=== PATIENT | female | born 1965 | race Caucasian/White ===

== ENCOUNTER 2019-12-05 11:47 | Emergency (ER) | payer OTHER, SELFPAY ==
[2019-12-05 11:58] VITALS: BP 151/95; PULSE 87; RESP 16; TEMP 37.2; O2SAT 97
--- NOTE | 2019-12-05 11:59 | ECG_ITS ---
Test Reason : CHEST PAIN Blood Pressure : / mmHG Vent. Rate : 088 BPM Atrial Rate : 088 BPM P-R Int : 164 ms QRS Dur : 086 ms QT Int : 364 ms P-R-T Axes : 046 008 033 degrees QTc Int : 440 ms Normal sinus rhythm Normal ECG No previous ECGs available Referred By: Nela Canales Electronically Signed By:CHARLENE CORREA MD
--- NOTE | 2019-12-05 12:00 | ED_ITS ---
HPI - Chest Pain General Chief Complaint: Chest Pain Stated Complaint: chest pain Time Seen by Provider: 12/05/19 12:00 Source: patient Mode of arrival: ambulatory Limitations: no limitations History of Present Illness HPI narrative: after episode went for walk around neighborhood and felt fine complaint: chest pain Onset (ago): day(s) (last night after drinking too much coffee and lasted 30 minutes) Timing of current episode: now resolved Onset: during rest Pain location: left chest Pain radiation: left arm Severity: moderate Quality: aching Relieving factors: nothing Exacerbating factors: nothing Associated symptoms: nausea and dyspnea Treatment prior to arrival: none Related Data Allergies Allergy/AdvReac Type Severity Reaction Status Date / Time No Known Allergies Allergy Verified 12/05/19 12:01 Review of Systems Review of Systems: Constitutional : No Weight loss, No Fever, No Chills ENT/Mouth : No sore throat, No Rhinorrhea Eyes: No Eye Pain, No Swelling Cardiovascular : pos Chest Pain, pos SOB, no Dyspnea on Exertion, No Orthopnea, No Edema, No Palpitations Respiratory : No Cough, No Sputum Gastrointestinal : pos Nausea, No Vomiting, No Diarrhea, No abdominal Pain, No Hematochezia, No Melena Genitourinary : No Dysuria, No Urinary Frequency Musculoskeletal : No joint pain, No Myalgias, No Joint Swelling Skin : No Skin Lesions, No rash Neuro : No Weakness, No Numbness, No Dizziness, No Headache All other systems reviewed and are negative [facility] Past Medical History Medical History No known health problems Surgical History H/O: hysterectomy Social History Social History Smoked in Last 30 Days: No Use of substances other than those prescribed or required for medical reasons: No Advance Directives: No Advance Directives Information Provided: No Physical Exam Vital Signs: Vital Signs: Vital Signs Temp Pulse Resp BP Pulse Ox 12/05/19 11:58 99.0 F 87 16 151/95 H 97 Body Mass Index 30.0 Appearance: Alert. Oriented X3. No acute distress. Eyes: Pupils equal, round and reactive to light. ENT: Pharynx normal. Neck: Normal inspection. Neck supple. CVS: Normal heart rate and rhythm. Pulses normal. Respiratory: No respiratory distress. Breath sounds normal. Abdomen: Soft and nontender. Skin: Skin warm and dry. Normal skin color. Normal skin turgor. Extremities: No lower extremity edema. No calf ttp ttp along L biceps muscle and trapezius as well as pectoralis Neuro: Oriented X 3. No motor deficit. No sensory deficit. Course Course Course Narrative: no acute findings, EKG negative, troponin negative, stable for DC MDM - Chest Pain MDM Narrative Medical decision making narrative: 54 yo female with resolved chest pain last night unsure if it was acid reflux after drinking too much coffee, will need labs, EKG, no hypoxia, not pleuritic, no signs of DVT doubt PE, distal pulses symmetric doubt dissection Lab Data Result diagrams: 12/05/19 12:10 12/05/19 12:10 Labs: Lab Results 12/05/19 12/05/19 12/05/19 Range/Units 12:10 12:10 12:10 Hold Blue Top SEE NOTE Sodium 138 (135-145) mmol/L Potassium 4.3 (3.3-5.1) mmol/l Chloride 101 (96-108) mmol/L Carbon Dioxide 26 (22-29) mmol/L Anion Gap 15 (12-20) BUN 15 (9-16) mg/dL Creatinine 0.71 (0.5-1.4) mg/dL Estim Creat Clear Calc 92.3 Estimated GFR > 60 Random Glucose 119 H (60-115) mg/dL Calcium 9.1 (8.4-10.2) mg/dL Magnesium 2.2 (1.6-2.6) mg/dL Total Bilirubin 0.6 (0.0-1.0) mg/dL Direct Bilirubin 0.2 (0.0-0.5) mg/dL AST 30 (5-31) U/L ALT 43 H (0-31) U/L Alkaline Phosphatase 103 (39-117) U/L Troponin I High Sens < 3.5 (<3.5-17.0) ng/L Total Protein 7.4 (6.5-8.0) g/dL Albumin 4.1 (3.5-5.0) g/dL Lipase 43 (8-78) U/L ECG Data ECG #1: Attestation: I personally reviewed and interpreted this ECG as follows: ECG interpretation date: 12/05/19 ECG interpretation time: 12:10 Interpretation: Rate: 88 Rhythm: NSR [place]: normal Normal P waves. Normal KELVIN. Normal QRS complex. ST T wave : normal qTC: normal prior studies: no acute ischemia The study has been interpreted contemporaneously by me. .
--- NOTE | 2019-12-05 12:02 | XR_ITS ---
EXAMINATION: XR CHEST CLINICAL INFORMATION: Chest pain COMPARISON: None TECHNIQUE: Portable upright AP view of the chest was obtained. FINDINGS: Lungs are clear. There is no pneumothorax, pleural reaction, airspace consolidation, or effusion. The costophrenic sulci are well-defined. The heart is normal in size. The vascularity is normal. The hilar and mediastinal contours are normal. No visible acute bony abnormality. IMPRESSION: Normal study.
[2019-12-05 12:38] LABS: Alanine Aminotransferase 43 U/L (0-31); Albumin Level 4.1 g/dL (3.5-5.0); Alkaline Phosphatase 103 U/L (39-117); Anion Gap 15 (12-20); Aspartate Amino Transferase 30 U/L (5-31); Bilirubin Direct 0.2 mg/dL (0.0-0.5); Bilirubin Total 0.6 mg/dL (0.0-1.0); Blood Urea Nitrogen 15 mg/dL (9-16); Calcium 9.1 mg/dL (8.4-10.2); Carbon Dioxide 26 mmol/L (22-29); Chloride 101 mmol/L (96-108); Creatinine Clr Calc Pharmacy 92.3; Estimated Glomerular Filt Rate > 60; Glucose Random 119 mg/dL (60-115); Lipase 43 U/L (8-78); Magnesium 2.2 mg/dL (1.6-2.6); Potassium 4.3 mmol/l (3.3-5.1); Sodium 138 mmol/L (135-145); Total Protein 7.4 g/dL (6.5-8.0)
[2019-12-05 12:58] LABS: Troponin-I High Sensitivity < 3.5 ng/L (<3.5-17.0)
== END 2019-12-05 13:19 | disposition home or self-care (01) ==
PROVIDERS: Emergency Provider Emergency Medicine; PCP Internal Medicine
DX: R07.9 Chest pain, unspecified (principal)
CPT/HCPCS: 36415; 71045; 80048; 80076; 83690; 83735; 84484; 93005; 99283; 99284

== ENCOUNTER 2021-09-28 08:28 | Emergency (ER) | payer OTHER, SELFPAY ==
--- NOTE | ~2021-09-28 | CT_ITS ---
EXAMINATION: CT HEAD WITHOUT CONTRAST CLINICAL INFORMATION: Left-sided weakness and numbness. Headache. COMPARISON: None TECHNIQUE: Contiguous axial imaging was performed from the skull base to vertex without intravenous administration of contrast. This CT examination was performed using dose optimization techniques as appropriate, variously including the following: *Automated exposure control *Adjustment of mA and/or kV according to patient size (this includes techniques or standardized protocols for targeted exams where dose is matched to indication/reason for exam; i.e. extremities or head) *Use of iterative reconstruction technique DLP: 673 mGy-cm FINDINGS: There is no evidence of acute intracranial hemorrhage or territorial infarction. No abnormal mass effect or midline shift is seen. Ge to white matter differentiation is well preserved. No extra-axial fluid collections are identified. The ventricles are normal in size. There is no abnormal attenuation within the brain parenchyma. The osseous structures and soft tissues are normal. The mastoid air cells and visualized portions of the paranasal sinuses are well aerated. CT/CT head/brain wo con IMPRESSION: Unremarkable exam.
--- NOTE | ~2021-09-28 | CT_ITS ---
EXAMINATION: CT ABDOMEN AND PELVIS WITHOUT CONTRAST CLINICAL INFORMATION: Abdominal pain and nausea COMPARISON: None TECHNIQUE: Multidetector volumetric imaging was performed from the superior aspect of the liver through the pubic symphysis. Sagittal and coronal reformatted images were obtained on the technologist's workstation. This CT examination was performed using dose optimization techniques as appropriate, variously including the following: *Automated exposure control *Adjustment of mA and/or kV according to patient size (this includes techniques or standardized protocols for targeted exams where dose is matched to indication/reason for exam; i.e. extremities or head) *Use of iterative reconstruction technique DLP: 733 mGy-cm FINDINGS: LUNG BASES: The visualized lung bases are unremarkable. LIVER, GALLBLADDER, AND BILIARY TREE: The liver is normal in size, shape, and attenuation. No focal hepatic lesion or biliary ductal dilatation is present. The gallbladder is unremarkable with no evidence of radiopaque gallstones, gallbladder wall thickening, or obvious pericholecystic inflammatory changes. PANCREAS: Unremarkable. SPLEEN: Unremarkable. ADRENAL GLANDS: Unremarkable. KIDNEYS AND URETERS: The kidneys are normal in size, shape, and attenuation. No hydronephrosis, hydroureter, or calculi seen. No perinephric stranding. BLADDER: Unremarkable. GASTROINTESTINAL TRACT: There is mild diverticulosis of the colon. No evidence of diverticulitis. The small and large bowel are otherwise unremarkable. The appendix is unremarkable. ABDOMINAL WALL: No significant hernia is appreciated. LYMPH NODES: Normal. VASCULAR: Unremarkable. PELVIC VISCERA: Uterus appears to have been removed. No pelvic mass. OSSEOUS STRUCTURES: Unremarkable. CT/CT abdomen pelvis wo con IMPRESSION: No acute findings. Mild diverticulosis of the colon. Fleischner guidelines were followed.
[2021-09-28 08:36] VITALS: BP 166/92; PULSE 84; RESP 18; TEMP 36.1; O2SAT 97; BMI 32.5
--- NOTE | 2021-09-28 09:14 | ED.GENADULT ---
HPI - General Adult General Chief complaint: General Medical Stated complaint: Vomiting/Blurry vision/Headache Time Seen by Provider: 09/28/21 08:59 Source: patient Mode of arrival: ambulatory Limitations: no limitations History of Present Illness HPI narrative: 55 yo female with history of depression/anxiety, untreated HTN who presents to the ER for evaluation of not feeling well for the last 1 month. She reports for the last month she has had intermittent migraine headaches, blurred vision and left sided heaviness. She reports the left side of her body sometimes feels tingling, kind of numb and heavy. It comes and goes. She attributed her symptoms to being very stressed at home. 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 She also recently tapered off of her Sertraline, last took it 3 weeks ago. She reports over the last 2 days she has burning in my whole gut. She states the burning pain radiates up into her chest. She is nauseous but not vomiting. She reports having small bowel movements but no complete bowel movement in the last few days. She has tried taking MiraLax. MD complaint: Abdominal pain to come, left-sided heaviness Onset (ago): week(s) Location: head, face, abdomen, upper extremity and lower extremity Radiation: non-radiation Severity: moderate Pain Consistency: intermittent Relieving factors: none Exacerbating factors: none Associated symptoms: headaches, malaise, nausea/vomiting and weakness Treatments prior to arrival: none Related Data Previous Rx's Medication Instructions Recorded lisinopril 10 mg tablet 10 mg PO DAILY #30 tabs 09/28/21 ondansetron 4 mg disintegrating 4 mg PO Q8H PRN nausea and 09/28/21 tablet vomiting #10 tabs pantoprazole 40 mg tablet,delayed 40 mg PO DAILY #30 tabs 09/28/21 release (Protonix) Allergies Allergy/AdvReac Type Severity Reaction Status Date / Time No Known Allergies Allergy Verified 12/05/19 12:01 Review of Systems Review of Systems: Constitutional: No Fever, No Chills ENT/Mouth: No sore throat, No Rhinorrhea, No Swallowing Difficulty Eyes: No Eye Pain, No Swelling, No Redness, +blurred vision Cardiovascular: No Chest Pain, No SOB, No Orthopnea, No Edema Respiratory: No Cough, No Sputum, No Wheezing, No dyspnea Gastrointestinal: + Nausea, No Vomiting, No Diarrhea, + abdominal Pain, No Hematochezia, No Melena Genitourinary: No Dysuria, No Urinary Frequency, No Hematuria Musculoskeletal: No joint pain, No Myalgias Skin: No Skin Lesions, No rash Neuro: + Weakness, + Numbness, No Dizziness, + Headache Psych: + Anxiety/Panic, + Depression Heme/Lymph: No Bruising, No Lymphadenopathy Endocrine: No Polyuria, No Polydipsia PMFSH Past Medical History Medical History No known health problems Surgical History H/O: hysterectomy Social History Social History Smoked in Last 30 Days: No Use of substances other than those prescribed or required for medical reasons: No Advance Directives: No Advance Directives Information Provided: Yes Physical Exam ED Vital Signs: Vital Signs - 24 hr 09/28/21 08:36 09/28/21 10:26 09/28/21 11:37 Temperature 97.0 F 98.1 F Pulse Rate 84 88 80 Respiratory Rate 18 20 Blood Pressure 166/92 H 196/106 H 168/98 H Pulse Oximetry 97 95 Oxygen Delivery Method Room Air Room Air BMI result Body Mass Index 32.5 Appearance: Alert. Oriented X3. No acute distress. Eyes: Pupils equal, round and reactive to light. EOMI, No nystagmus ENT: Pharynx normal. Neck: Normal inspection. Neck supple. CVS: Normal heart rate and rhythm. Pulses normal. Respiratory: No respiratory distress. Breath sounds normal. Abdomen: Obese, Soft with moderate tenderness to palpation of the periumbulical and epigastric areas, no rebound or guarding, normal +BS x4 Skin: Skin warm and dry. Normal skin color. Normal skin turgor. No rashes. Extremities: No lower extremity edema. Neuro: Oriented X 3. No motor deficit. No sensory deficit. CN II-XII intact. no visual field deficits. Equal and symmetrical strength throughout. Steady gait. Normal speech and cognition. Nonfocal NIH Stroke Scale Internal: Initial- Upon Arrival Level of Consciousness: Alert Level of Consciousness Questions: Answers both questions correctly Level of Consciousness Commands: Performs both tasks correctly Best Gaze: Normal Visual: No visual loss Facial Palsy: Normal Motor Arm (Right): No drift Motor Arm (Left): No drift Motor Leg (Right): No drift Motor Leg (Left): No drift Limb Ataxia: Absent Sensory: Normal Best Language: No aphasia Dysarthia: Normal Extinction and Inattention: No abnormality Score: 0 Course Course Course Narrative: 55-year-old female with history of anxiety, depression, untreated hypertension who presents to the ER for evaluation of 1 month of feeling unwell. She reports 1 month of intermittent headaches and left-sided heaviness. Two days ago developed burning abdominal pain that radiates up into her chest. On arrival to the ER she is hypertensive 160 systolic. She has a migraine headache. Her neuro exam is completely nonfocal with an NIH of 0. Will plan to check CT head, basic lab workup, will also scan her belly given her abdominal pain and tenderness. Will give a GI cocktail in Tylenol for now. Will reassess. Reevaluation(s) Reevaluation #1: His blood pressure noted to be significantly elevated 196/106. She is complaining of a headache. The CT scan of her head is normal. Her left arm is mildly heavy. This most likely due to her poorly controlled blood pressure. Will give her dose of IV labetalol and reassess. Her ongoing symptoms of the last month can be explained by poorly controlled blood pressure. She has no signs of end-organ damage at this time. Her renal function is normal. Reevaluation #2: Patient is feeling better. Her blood pressure improved to the 160 systolic. Will plan to initiate her on lisinopril 10 mg per day. She has contacted her PCP and plans to see her this week for re-evaluation and further monitoring. Medical Decision Making Lab Data Result diagrams: 09/28/21 09:18 09/28/21 09:18 Labs: Lab Results 09/28/21 09/28/21 09/28/21 Range/Units 09:17 09:17 09:18 WBC 9.8 (4.8-10.8) X10*3/uL RBC 5.18 (4.20-5.50) X10*6/uL Hgb 14.5 (12.0-16.0) g/dl Hct 44.2 (37.0-47.0) % MCV 85.3 (80.0-98.0) fL MCH 28.0 (27.0-33.0) pg MCHC 32.8 (31.0-35.0) g/dl RDW 13.2 (11.0-16.0) % Plt Count 304 (160-400) X10*3/uL MPV 10.1 (9.4-12.3) fL Immature Gran % (Auto) 0.2 (0.0-0.4) % Neut % (Auto) 81.9 H (45-73) % Lymph % (Auto) 9.3 L (20-40) % [place] % (Auto) 5.8 (2-11) % Eos % (Auto) 2.6 (0-4) % Baso % (Auto) 0.2 (0-2) % Lymph # (Auto) 0.9 L (1.2-4.9) X10*3/uL [place] # (Auto) 0.6 (0.1-1.2) X10*3/uL Eos # (Auto) 0.3 (0.0-0.4) X10*3/uL Baso # (Auto) 0.0 (0.0-0.2) X10*3/uL Abs Immat Gran (auto) 0.02 (0.00-0.03) X10*3/uL Absolute Neuts (auto) 8.0 (2.0-8.3) x10*3/uL Absolute Nucleated RBC 0.000 (0.0-0.012) X10*3/uL Nucleated RBC % (auto) 0.0 (0.0-0.2) /100WBC Sodium (135-145) mmol/L Potassium (3.3-5.1) mmol/L Chloride (96-108) mmol/L Carbon Dioxide (22-29) mmol/L Anion Gap (12-20) BUN (9-16) mg/dL Creatinine (0.5-1.4) mg/dL Estim Creat Clear Calc Estimated GFR Random Glucose (60-115) mg/dL Calcium (8.4-10.2) mg/dL Magnesium (1.6-2.6) mg/dL Total Bilirubin (0.0-1.0) mg/dL Direct Bilirubin (0.0-0.5) mg/dL AST (5-31) U/L ALT (0-31) U/L Alkaline Phosphatase (39-117) U/L Total Protein (6.5-8.0) g/dL Albumin (3.5-5.0) g/dL Lipase 19 (8-78) U/L COVID-19 (ANGELA) Negative (Negative) COVID-19 Clin Com See Note 09/28/21 Range/Units 09:18 WBC (4.8-10.8) X10*3/uL RBC (4.20-5.50) X10*6/uL Hgb (12.0-16.0) g/dl Hct (37.0-47.0) % MCV (80.0-98.0) fL MCH (27.0-33.0) pg MCHC (31.0-35.0) g/dl RDW (11.0-16.0) % Plt Count (160-400) X10*3/uL MPV (9.4-12.3) fL Immature Gran % (Auto) (0.0-0.4) % Neut % (Auto) (45-73) % Lymph % (Auto) (20-40) % [place] % (Auto) (2-11) % Eos % (Auto) (0-4) % Baso % (Auto) (0-2) % Lymph # (Auto) (1.2-4.9) X10*3/uL [place] # (Auto) (0.1-1.2) X10*3/uL Eos # (Auto) (0.0-0.4) X10*3/uL Baso # (Auto) (0.0-0.2) X10*3/uL Abs Immat Gran (auto) (0.00-0.03) X10*3/uL Absolute Neuts (auto) (2.0-8.3) x10*3/uL Absolute Nucleated RBC (0.0-0.012) X10*3/uL Nucleated RBC % (auto) (0.0-0.2) /100WBC Sodium 142 (135-145) mmol/L Potassium 3.9 (3.3-5.1) mmol/L Chloride 104 (96-108) mmol/L Carbon Dioxide 27 (22-29) mmol/L Anion Gap 15 (12-20) BUN 8 L (9-16) mg/dL Creatinine 0.72 (0.5-1.4) mg/dL Estim Creat Clear Calc 93.8 Estimated GFR > 60 Random Glucose 109 (60-115) mg/dL Calcium 9.0 (8.4-10.2) mg/dL Magnesium 2.0 (1.6-2.6) mg/dL Total Bilirubin 1.2 H (0.0-1.0) mg/dL Direct Bilirubin 0.4 (0.0-0.5) mg/dL AST 17 D (5-31) U/L ALT 25 (0-31) U/L Alkaline Phosphatase 102 (39-117) U/L Total Protein 7.0 (6.5-8.0) g/dL Albumin 4.1 (3.5-5.0) g/dL Lipase (8-78) U/L COVID-19 (ANGELA) (Negative) COVID-19 Clin Com Critical Care Time Critical Care Time Critical Care Time: Yes Total Critical Care Time: 35 Attestation: I have personally provided critical care time exclusive of time spent on separately billable procedures. Time includes review of lab data, radiology results, discussion with consultants, and monitoring for potential decompensation. Intervention performed as documented. Discharge Plan Discharge Clinical Impression: Hypertension Patient Disposition: Home, Self-Care Instructions: DASH Eating Plan (ED), Hypertension (ED) Additional Instructions: While in the ER today your blood pressure was found to be significantly elevated. IV medications were given to improve this. Start taking the prescribed blood pressure medication as directed. Follow-up with your doctor this week. Your lab workup and CT scans were otherwise unremarkable. Do your best to cut out salt from your diet. If you develop new or worsening symptoms call 911 or come back to the ER for further evaluation. Prescriptions: New lisinopril 10 mg tablet 10 mg PO DAILY Qty: 30 0RF ondansetron 4 mg tablet,disintegrating 4 mg PO Q8H PRN (Reason: nausea and vomiting) Qty: 10 0RF pantoprazole [Protonix] 40 mg tablet,delayed release (DR/EC) 40 mg PO DAILY Qty: 30 0RF Referrals: Joelle Rodriguez MD [Primary Care Provider] - Interventions: ED Discharge Assessment Last Done: 09/28/21 11:47 Discharge Date/Time: 09/28/21 11:47
[2021-09-28 09:23] LABS: Basophils Percent Auto 0.2 % (0-2); Eosinophils Absolute Auto 0.3 X10*3/uL (0.0-0.4); Eosinophils Percent Auto 2.6 % (0-4); Hematocrit 44.2 % (37.0-47.0); Hemoglobin 14.5 g/dl (12.0-16.0); Imm Gran Abs Auto 0.02 X10*3/uL (0.00-0.03); Imm Gran Pct Auto 0.2 % (0.0-0.4); Lymphocytes Absolute Auto 0.9 X10*3/uL (1.2-4.9); Lymphocytes Percent Auto 9.3 % (20-40); MANUAL DIFF FLAG NO; Mean Corpuscular HGB Conc 32.8 g/dl (31.0-35.0); Mean Corpuscular Volume 85.3 fL (80.0-98.0); Mean Platelet Volume 10.1 fL (9.4-12.3); Monocytes Absolute Auto 0.6 X10*3/uL (0.1-1.2); Monocytes Percent Auto 5.8 % (2-11); Neutrophils Percent Auto 81.9 % (45-73); Platelet Count 304 X10*3/uL (160-400); Red Blood Count 5.18 X10*6/uL (4.20-5.50); Red Cell Distribution Width 13.2 % (11.0-16.0); White Blood Count 9.8 X10*3/uL (4.8-10.8)
[2021-09-28 09:49] LABS: COVID-19 Test Negative (Negative); IDNOW Serial# 16C4AD1C
[2021-09-28 09:53] LABS: Alanine Aminotransferase 25 U/L (0-31); Albumin Level 4.1 g/dL (3.5-5.0); Alkaline Phosphatase 102 U/L (39-117); Anion Gap 15 (12-20); Aspartate Amino Transferase 17 U/L (5-31); Bilirubin Direct 0.4 mg/dL (0.0-0.5); Bilirubin Total 1.2 mg/dL (0.0-1.0); Blood Urea Nitrogen 8 mg/dL (9-16); Carbon Dioxide 27 mmol/L (22-29); Chloride 104 mmol/L (96-108); Creatinine Clr Calc Pharmacy 93.8; Estimated Glomerular Filt Rate > 60; Glucose Random 109 mg/dL (60-115); Potassium 3.9 mmol/L (3.3-5.1); Sodium 142 mmol/L (135-145)
[2021-09-28 09:54] LABS: Lipase 19 U/L (8-78)
[2021-09-28] MEDS: Acetaminophen 325 MG TABLET 975 MG PO (10:23)
[2021-09-28] MEDS: Magnesium Hydrox/Alum Hydrox 30 ML ORAL.SUSP PO (10:24)
[2021-09-28] MEDS: PHENobarb/Hyoscy/Atropine/Scop 10 ML ELIXIR PO (10:24)
[2021-09-28] MEDS: Lidocaine HCl Viscous 2 % 15 ML SOLUTION MUCOUS MEM (10:24)
[2021-09-28 10:26] VITALS: BP 196/106; PULSE 88; RESP 20; TEMP 36.7; O2SAT 95
[2021-09-28 11:37] VITALS: BP 168/98; PULSE 80
== END 2021-09-28 11:47 | disposition home or self-care (01) ==
PROVIDERS: Physician Assistant; Emergency Provider Student in an Organized Health Care Education/Training Program; PCP Internal Medicine
DX: R51.9 Headache, unspecified (principal); R53.1 Weakness; I10 Essential (primary) hypertension; R10.2 Pelvic and perineal pain; Z20.822 Contact with and (suspected) exposure to COVID-19; Z79.899 Other long term (current) drug therapy
CPT/HCPCS: 36415; 70450; 74176; 80048; 80076; 83690; 83735; 85025; 87635; 96374; 99284

== ENCOUNTER 2021-12-11 11:37 | Emergency (ER) | payer OTHER, SELFPAY ==
--- NOTE | ~2021-12-11 | XR_ITS ---
EXAMINATION: XR CHEST CLINICAL INFORMATION: Chest pain COMPARISON: December 05, 2019 TECHNIQUE: 2 views of the chest were obtained. FINDINGS: No significant abnormality is noted involving the heart, lungs, mediastinum, bony thorax or soft tissues. XR/XR chest 2V IMPRESSION: No acute disease.
[2021-12-11 11:55] VITALS: BP 152/83; PULSE 85; RESP 18; TEMP 37.2; O2SAT 100; BMI 32.5
--- NOTE | 2021-12-11 11:55 | ECG_ITS ---
Test Reason : chest pain Blood Pressure : / mmHG Vent. Rate : 082 BPM Atrial Rate : 082 BPM P-R Int : 178 ms QRS Dur : 084 ms QT Int : 358 ms P-R-T Axes : 044 -02 040 degrees QTc Int : 418 ms Normal sinus rhythm Normal ECG When compared with ECG of 05-DEC-2019 11:55, No significant change was found Referred By: Generic ED Physician Electronically Signed By:CHARLENE CORREA MD
[2021-12-11 12:28] LABS: MANUAL DIFF FLAG NO
[2021-12-11 12:29] LABS: Basophils Percent Auto 0.2 % (0-2); Eosinophils Absolute Auto 0.1 X10*3/uL (0.0-0.4); Eosinophils Percent Auto 1.4 % (0-4); Hematocrit 43.9 % (37.0-47.0); Hemoglobin 14.3 g/dl (12.0-16.0); Imm Gran Abs Auto 0.02 X10*3/uL (0.00-0.03); Imm Gran Pct Auto 0.2 % (0.0-0.4); Lymphocytes Absolute Auto 1.8 X10*3/uL (1.2-4.9); Lymphocytes Percent Auto 21.5 % (20-40); Mean Corpuscular HGB Conc 32.6 g/dl (31.0-35.0); Mean Corpuscular Volume 85.9 fL (80.0-98.0); Monocytes Absolute Auto 0.7 X10*3/uL (0.1-1.2); Monocytes Percent Auto 8.2 % (2-11); Neutrophils Absolute Auto 5.7 x10*3/uL (2.0-8.3); Neutrophils Percent Auto 68.5 % (45-73); Platelet Count 333 X10*3/uL (160-400); Red Blood Count 5.11 X10*6/uL (4.20-5.50); Red Cell Distribution Width 13.2 % (11.0-16.0); White Blood Count 8.3 X10*3/uL (4.8-10.8)
[2021-12-11 12:43] LABS: COVID-19 Test Negative (Negative); IDNOW Serial# 16C4AD1C
[2021-12-11 12:50] LABS: Alanine Aminotransferase 35 U/L (0-31); Albumin Level 4.1 g/dL (3.5-5.0); Alkaline Phosphatase 114 U/L (39-117); Anion Gap 15 (12-20); Aspartate Amino Transferase 24 U/L (5-31); Bilirubin Direct 0.2 mg/dL (0.0-0.5); Bilirubin Total 0.5 mg/dL (0.0-1.0); Blood Urea Nitrogen 9 mg/dL (9-16); Calcium 8.7 mg/dL (8.4-10.2); Carbon Dioxide 25 mmol/L (22-29); Chloride 105 mmol/L (96-108); Creatinine Clr Calc Pharmacy 96.6; Estimated Glomerular Filt Rate > 60; Glucose Random 96 mg/dL (60-115); Lipase 20 U/L (8-78); Potassium 3.9 mmol/L (3.3-5.1); Sodium 141 mmol/L (135-145); Total Protein 7.2 g/dL (6.5-8.0)
[2021-12-11 12:56] LABS: Troponin-I High Sensitivity < 3.5 ng/L (<3.5-17.0)
--- NOTE | 2021-12-11 13:04 | ED_ITS ---
HPI - Chest Pain General Chief Complaint: Chest Pain Stated Complaint: L upper quad pain Time Seen by Provider: 12/11/21 12:13 Source: patient Mode of arrival: ambulatory Limitations: no limitations History of Present Illness HPI narrative: Patient is a 56 year old female with a past medical history of anxiety/depr ession and hypertension who presents to the ED today with complaints of left- sided chest pain for the last 1-2 months. She was seen here back in 09/2021 with similar symptoms and was treated for hypertension with lisinopril at the time. She continues to have the pain despite her previous workup. She describes the pain as a pressure that radiates into her neck, arm, and shoulder blade that has recently worsened. She denies any alleviating or aggravating factors. She denies any fevers, chills, headaches, dizziness, vision changes, exertional dyspnea, SOB, hemoptysis, palpitations, abdominal pain, N/V/D, back pain, calf pain/swelling, recent surgery, recent trauma, recent travel, hx of coagulation disorders, and OCP use. Related Data Previous Rx's Medication Instructions Recorded lisinopril 10 mg tablet 10 mg PO DAILY #30 tabs 09/28/21 ondansetron 4 mg disintegrating 4 mg PO Q8H PRN nausea and 09/28/21 tablet vomiting #10 tabs pantoprazole 40 mg tablet,delayed 40 mg PO DAILY #30 tabs 09/28/21 release (Protonix) Allergies Allergy/AdvReac Type Severity Reaction Status Date / Time No Known Allergies Allergy Verified 12/05/19 12:01 Review of Systems Review of Systems: Yes all other systems are reviewed and are negative Constitutional: Constitutional: Reports no additional constitutional complaints, Denies body ache(s), Denies chills, Denies fever(s), Denies headache(s) and Denies weakness Eyes: Eyes: Reports no additional eye complaints and Denies change in vision ENT: Reports system reviewed and no additional complaints, except as documented, Denies dizziness, Denies headache(s), Denies nasal congestion, Denies nasal discharge and Denies neck pain Cardiovascular: Cardiovascular: Reports no additional cardiovascular complaints, Reports chest pain, Denies leg edema and Denies dyspnea Respiratory: Respiratory: Reports no additional respiratory complaints, Denies cough and Denies dyspnea Gastrointestinal: Gastrointestinal: Reports no additional gastrointestinal complaints, Denies abdominal pain, Denies diarrhea, Denies nausea and Denies vomiting Genitourinary: Genitourinary: Reports no additional female genitourinary complaints and Denies urinary incontinence Musculoskeletal: Musculoskeletal: Reports no additional musculoskeletal complaints, Denies back pain, Denies arthralgias, Denies joint swelling, Denies neck pain, Denies numbness and Denies tingling Integumentary/Breasts: Skin/Breast: Reports system reviewed and no additional complaints, except as docu and Denies rash Neurologic: Reports system reviewed and no additional complaints, except as documented, Denies Abnormal speech present, Denies dizziness, Denies headache(s), Denies numbness, Denies tingling and Denies weakness PMFSH Past Medical History Attestation statement: The following information was validated with the patient. Source: old records reviewed, obtained from family and nursing notes reviewed Medical History No known health problems Surgical History H/O: hysterectomy Social History Social History Advance Directives: No Physical Exam Vital Signs: Vital Signs: Last Vital Signs Temp 98.9 F 12/11/21 11:55 Pulse 85 12/11/21 11:55 Resp 18 12/11/21 11:55 BP 152/83 H 12/11/21 11:55 Pulse Ox 100 12/11/21 11:55 O2 Del Method 12/11/21 11:55 BMI result Body Mass Index 32.5 Const: General: cooperative, healthy appearing, comfortable and no acute distress Orientation/consciousness: patient oriented x3 Limitations: no limitations HEENT: Head: Yes normal to inspection Ears: hearing grossly normal bilaterally General nose exam: Normal external nose present Face and sinus: Yes normal facial exam Mouth: Normal oral and palatal mucosa present Throat: Yes posterior oropharynx normal Eyes: General: appearance normal, both eyes and all related structures Pupils: Equal, round and reactive pupils present Neck: Neck: Yes normal visual inspection Chest: Chest palpation & inspection: normal inspection of the chest Resp: Effort & Inspection: normal respiratory effort Auscultation: clear to auscultation bilaterally Cardio: Rate: regular rate Rhythm: regular rhythm Peripheral pulses: Peripheral pulses 2+ throughout GI: Inspection: Yes normal to inspection Palpation (GI): Soft to palpation and nontender Auscultation: normal bowel sounds Back/Spine/Pelvis: Thoracic/Lumbar Spine: thoracic and lumbar spine normal to inspection Skin: General skin exam: no rashes or lesions noted Neuro: General: patient oriented x3, no focal motor deficits and normal sensation to monofilament Cranial nerves: Yes Equal, round and reactive pupils present Cognition (Neuro): normal cognition Speech: No Abnormal speech present Gait exam (Neuro): Normal gait present Motor exam (neuro): 5/5 motor strength present throughout Extrem: General: Yes normal to inspection and Yes no calf tenderness Course Reevaluation(s) Reevaluation #1: 13:15 -Initial CBC, BMP, Mg, lipase within normal limits. Initial troponin negative <3.5. Given chronicity of symptoms, low heart score risk, and negative initial troponin, will defer 2nd troponin at this time. -EKG shows NSR at 82bpm, QTc 418 ms, UT normal. No significant changes compared it to last EKG on 12/11/2021. -CXR currently pending. Reevaluation #2: 14:30 -CXR negative for any acute disease. -Given negative labs, EKG, chest x-ray. Discussed results with patient and that she is low risk for ACS, dissection, PE at this time. Plan to discharge home, advised follow up with PCP in 2-3 days for further work-up. Discussed return to the ED if red flag symptoms occur or new/worsening symptoms develop. MDM - Chest Pain MDM Narrative Medical decision making narrative: Patient is a 56 year old female with a past medical history of anxiety/depression and hypertension who presents to the ED today with complaints of left-sided chest pain for the last 1-2 months. Patient mildly hypertensive at 152/83, otherwise VSS. Patient nontoxic appearing comfortable in bed. Chest pain is reproducible with palpation over the left clavicle area. Otherwise physical exam is unremarkable. Low concern for ACS given heart score of 3, chronicity of symptoms, recent negative workup, reproducible pain. Patient with perc score of 1, low concern for PE given recent negative workup, negative [place], patient without tachycardia or tachypnea, neg calf pain/swelling. Will order CBC, BMP, troponin, EKG, CXR to rule out cardiac etiology. Medical Records Data Attestation: I reviewed the patient's medical records. Lab Data Attestation: I reviewed the patient's lab results. Result diagrams: 12/11/21 12:20 12/11/21 12:20 Labs: Lab Results 12/11/21 12/11/21 12/11/21 Range/Units 12:20 12:20 12:20 WBC 8.3 (4.8-10.8) X10*3/uL RBC 5.11 (4.20-5.50) X10*6/uL Hgb 14.3 (12.0-16.0) g/dl Hct 43.9 (37.0-47.0) % MCV 85.9 (80.0-98.0) fL MCH 28.0 (27.0-33.0) pg MCHC 32.6 (31.0-35.0) g/dl RDW 13.2 (11.0-16.0) % Plt Count 333 (160-400) X10*3/uL MPV 10.0 (9.4-12.3) fL Immature Gran % (Auto) 0.2 (0.0-0.4) % Neut % (Auto) 68.5 (45-73) % Lymph % (Auto) 21.5 (20-40) % [place] % (Auto) 8.2 (2-11) % Eos % (Auto) 1.4 (0-4) % Baso % (Auto) 0.2 (0-2) % Lymph # (Auto) 1.8 (1.2-4.9) X10*3/uL [place] # (Auto) 0.7 (0.1-1.2) X10*3/uL Eos # (Auto) 0.1 (0.0-0.4) X10*3/uL Baso # (Auto) 0.0 (0.0-0.2) X10*3/uL Abs Immat Gran (auto) 0.02 (0.00-0.03) X10*3/uL Absolute Neuts (auto) 5.7 (2.0-8.3) x10*3/uL Absolute Nucleated RBC 0.000 (0.0-0.012) X10*3/uL Nucleated RBC % (auto) 0.0 (0.0-0.2) /100WBC Sodium 141 (135-145) mmol/L Potassium 3.9 (3.3-5.1) mmol/L Chloride 105 (96-108) mmol/L Carbon Dioxide 25 (22-29) mmol/L Anion Gap 15 (12-20) BUN 9 (9-16) mg/dL Creatinine 0.69 (0.5-1.4) mg/dL Estim Creat Clear Calc 96.6 Estimated GFR > 60 Random Glucose 96 (60-115) mg/dL Calcium 8.7 (8.4-10.2) mg/dL Magnesium 2.0 (1.6-2.6) mg/dL Total Bilirubin 0.5 (0.0-1.0) mg/dL Direct Bilirubin 0.2 (0.0-0.5) mg/dL AST 24 D (5-31) U/L ALT 35 H (0-31) U/L Alkaline Phosphatase 114 (39-117) U/L Troponin I High Sens < 3.5 (<3.5-17.0) ng/L Total Protein 7.2 (6.5-8.0) g/dL Albumin 4.1 (3.5-5.0) g/dL Lipase 20 (8-78) U/L COVID-19 (ANGELA) (Negative) COVID-19 Clin Com 12/11/21 Range/Units 12:20 WBC (4.8-10.8) X10*3/uL RBC (4.20-5.50) X10*6/uL Hgb (12.0-16.0) g/dl Hct (37.0-47.0) % MCV (80.0-98.0) fL MCH (27.0-33.0) pg MCHC (31.0-35.0) g/dl RDW (11.0-16.0) % Plt Count (160-400) X10*3/uL MPV (9.4-12.3) fL Immature Gran % (Auto) (0.0-0.4) % Neut % (Auto) (45-73) % Lymph % (Auto) (20-40) % [place] % (Auto) (2-11) % Eos % (Auto) (0-4) % Baso % (Auto) (0-2) % Lymph # (Auto) (1.2-4.9) X10*3/uL [place] # (Auto) (0.1-1.2) X10*3/uL Eos # (Auto) (0.0-0.4) X10*3/uL Baso # (Auto) (0.0-0.2) X10*3/uL Abs Immat Gran (auto) (0.00-0.03) X10*3/uL Absolute Neuts (auto) (2.0-8.3) x10*3/uL Absolute Nucleated RBC (0.0-0.012) X10*3/uL Nucleated RBC % (auto) (0.0-0.2) /100WBC Sodium (135-145) mmol/L Potassium (3.3-5.1) mmol/L Chloride (96-108) mmol/L Carbon Dioxide (22-29) mmol/L Anion Gap (12-20) BUN (9-16) mg/dL Creatinine (0.5-1.4) mg/dL Estim Creat Clear Calc Estimated GFR Random Glucose (60-115) mg/dL Calcium (8.4-10.2) mg/dL Magnesium (1.6-2.6) mg/dL Total Bilirubin (0.0-1.0) mg/dL Direct Bilirubin (0.0-0.5) mg/dL AST (5-31) U/L ALT (0-31) U/L Alkaline Phosphatase (39-117) U/L Troponin I High Sens (<3.5-17.0) ng/L Total Protein (6.5-8.0) g/dL Albumin (3.5-5.0) g/dL Lipase (8-78) U/L COVID-19 (ANGELA) Negative (Negative) COVID-19 Clin Com See Note Imaging Data Chest x-ray: Attestation: I personally reviewed and interpreted this imaging study as follows: Radiologist's impression: EXAMINATION: XR CHEST CLINICAL INFORMATION: Chest pain COMPARISON: December 05, 2019 TECHNIQUE: 2 views of the chest were obtained. FINDINGS: No significant abnormality is noted involving the heart, lungs, mediastinum, bony thorax or soft tissues. XR/XR chest 2V IMPRESSION: No acute disease. ECG Data ECG #1: Attestation: I personally reviewed and interpreted this ECG as follows: ECG interpretation date: 12/11/21 ECG interpretation time: 11:58 Interpretation: Normal sinus rhythm with rate 82, normal UT, normal QRS, normal QT Discharge Plan Discharge Clinical Impression: Chest pain Patient Disposition: Home, Self-Care Instructions: Chest Pain (DC) Additional Instructions: We have discussed that you are at low risk for major cardiac events You should follow-up with her primary care doctor to have additional testing done You should return for any worsening symptoms Prescriptions: No Action lisinopril 10 mg tablet 10 mg PO DAILY Qty: 30 0RF ondansetron 4 mg tablet,disintegrating 4 mg PO Q8H PRN (Reason: nausea and vomiting) Qty: 10 0RF pantoprazole [Protonix] 40 mg tablet,delayed release (DR/EC) 40 mg PO DAILY Qty: 30 0RF Referrals: Joelle Rodriguez MD [Primary Care Provider] - 2 weeks Interventions: ED Discharge Assessment Last Done: 12/11/21 15:20 Discharge Date/Time: 12/11/21 15:20
== END 2021-12-11 15:20 | disposition home or self-care (01) ==
PROVIDERS: Emergency Provider Emergency Medicine; PCP Internal Medicine
DX: R07.89 Other chest pain (principal); R10.12 Left upper quadrant pain; Z20.822 Contact with and (suspected) exposure to COVID-19; Z79.899 Other long term (current) drug therapy
CPT/HCPCS: 71046; 80048; 80076; 83690; 83735; 84484; 85025; 87635; 93005; 99283

== ENCOUNTER 2024-10-27 08:49 | Outpatient (AMB) | payer OTHER, SELFPAY ==
--- NOTE | 2024-10-27 08:58 | MHC.OFFVIS ---
Vital Signs 10/27/24 09:05 Height 5 ft 3 in Weight 202 lb BMI 35.8 BP 145/97 H Blood Pressure Location Rt brachial Position Sitting Pulse 86 Pulse Source Pulse Oximeter Pulse Oximetry (%) 97 Intake Visit Reasons: Bilateral Primary Osteoarthritis of Hands & Knees Intake Note: Pain today 11/24 Laserist Required: No Accompanied by: Self / Same As Patient Allergies No Known Allergies Allergy (Verified 10/27/24 09:05) HPI Comments Details: The patient is a 59-year-old female presenting with knee pain due to osteoarthritis. The patient reports having severe osteoarthritis in both knees, with pain that began approximately two years ago and has progressively worsened over time. She has undergone physical therapy and received cortisone injections at [facility], the last of which was five to six months ago, but these interventions provided limited relief. The patient experiences difficulty rising from a kneeling position without assistance and has limited mobility due to a previous left ankle surgery. The patient also has a history of osteoarthritis in both hands and arthritis in the left thumb, which has been surgically treated with some relief of the original pain. However, she now experiences difficulty bearing weight on her wrist. The patient is prediabetic and has a history of anxiety and depression, for which she is seeking psychiatric care to adjust her medications. She reports that her BMI is 35.8, and she is aware of her overweight status, which she believes contributes to her knee pain. The patient has tried various pain management strategies, including Tylenol, duloxetine, gabapentin, and oxycodone post-surgery, as well as topical treatments like lidocaine, heat, and ice. She finds that ice provides significant relief, particularly at night, although her pain remains constant and severe, affecting her daily activities and sleep. - Onset: Pain began approximately two years ago and has progressively worsened. - Quality: Pain is described as constant, shooting, stabbing, sharp, sore, aching, heavy, and burning. - Location: Pain is primarily in the knees, radiating from medial to lateral, with the left knee being worse than the right. - Exacerbating Factors: Pain worsens with mobility and weight-bearing activities. - Relieving Factors: Ice provides significant relief, especially at night. - Interference: Pain affects mobility, daily activities, and sleep, with morning pain rated 7 to 10 out of 10 and bedtime pain rated 7 out of 10. - Affect: Pain impacts mood and psychological well-being, contributing to anxiety and depression. - Analgesia: Current medications include Tylenol, Advil, duloxetine, gabapentin, and post-surgical oxycodone; pain remains severe, with morning pain rated 7 to 10 out of 10. - Adverse Effects: Sleep medications cause daytime drowsiness and increased appetite. - Activities of Daily Living: Pain limits mobility and daily activities, with difficulty rising from kneeling positions. - Aberrant Drug Related Behaviors: No signs of medication misuse or abuse reported. [facility] Medical History (Updated 10/27/24 @ 14:41 by MUMTAZ Knapp) Chronic low back pain Tendinitis, de Quervain's Lumbar spondylitis Hyperlipemia GERD without esophagitis Elevated glucose Chronic nausea Osteoarthritis of knees, bilateral Prediabetes Overweight Surgical History (Updated 10/27/24 @ 09:20 by Lupe Thompson) History of eye surgery History of arthroplasty of left ankle H/O: hysterectomy Social History (Updated 10/27/24 @ 09:06 by Lupe Thompson) Alcohol intake: never Patient Tobacco Use Status: Former Tobacco user Review of Systems Const Details: - Musculoskeletal: Reports constant, shooting, stabbing, sharp, sore, aching, heavy, burning knee pain; difficulty rising from kneeling position; limited mobility due to left ankle surgery. All systems reviewed & are unremarkable except as noted in HPI and below Physical Exam Vital Signs: Last Vital Signs Pulse 86 10/27/24 09:05 BP 145/97 H 10/27/24 09:05 Pulse Ox 97 10/27/24 09:05 BMI result Body Mass Index 35.8 General: Appears afebrile. Alert and oriented. Mood and affect appropriate. Follows and participates in conversation appropriately. Respiratory effort is unlabored. No cough. Able to transition from sit to stand unassisted. Ambulates with bilaterally normal heel strike and toe off. Back/Spine/Pelvis Cervical Spine: cervical ROM normal and No Cervical spine tenderness Thoracic/Lumbar Spine: thoracic and lumbar spine normal to inspection, No Thoracic/lumbar spine scar(s), Lasegue's sign negative, straight leg raise negative bilaterally, pain with thoraco-lumbar ROM, thoraco-lumbar ROM limited, No thoracic spinal tenderness and No lumbar spinal tenderness Extrem General: Yes capillary refill normal, Yes no clubbing, cyanosis or edema and Yes no calf tenderness Right lower extremity: knee (Limited ROM due to pain) Details: normal to inspection, tenderness Location: of the patella, of the medial joint line and of the lateral joint line and crepitus; no swelling, no ecchymosis, no deformity and no unusual warmth Left lower extremity: knee (Limited ROM due to pain) Details: normal to inspection, tenderness Location: of the medial joint line and of the lateral joint line and crepitus; no swelling, no ecchymosis and no unusual warmth Results Reviewed Results Reviewed: No imaging results are available for review. Assessment & Plan Assessment & Plan (1) Bilateral knee pain: Code(s): M25.561 - Pain in right knee; M25.562 - Pain in left knee Category: Medical (2) Obesity (BMI 30-39.9): Code(s): E66.9 - Obesity, unspecified Category: Medical (3) Osteoarthritis of knees, bilateral: Code(s): M17.0 - Bilateral primary osteoarthritis of knee Category: Medical (4) Chronic low back pain: Code(s): M54.50 - Low back pain, unspecified; G89.29 - Other chronic pain Category: Medical Plan The plan for managing the patient's knee osteoarthritis includes considering genicular nerve blocks for potential RFA procedure, with the left knee being the initial focus. We also reviewed peripheral nerve stimulation with Sprint PNS trial. Schedule Left Diagnostic Genicular Nerve Block with local and fluoroscopy. Expectations, risks and benefits were reviewed. Patient is aware she will be contacted to schedule this procedure. Physical therapy is recommended to strengthen the legs while awaiting further interventions, and the patient is advised to continue monitoring her BMI, which is currently 35.8, to remain eligible for potential future knee replacement or peripheral nerve stimulation. The patient is also encouraged to reduce soda intake as part of lifestyle modifications to manage her prediabetes and weight. All questions and concerns have been answered and patient agreed with the treatment plan. Follow up after injections and sooner as needed. Patient was informed and verbally consented to the use of an ambient scribe for clinic note documentation during this visit. Coding Level of Care Code New Pt Level 4 (94703) Diagnoses Bilateral knee pain M25.561; M25.562 Obesity (BMI 30-39.9) E66.9 Osteoarthritis of knees, bilateral M17.0 Chronic low back pain M54.50; G89.29
[2024-10-27 09:05] VITALS: BP 145/97; PULSE 86; O2SAT 97; BMI 35.8
--- OUTSIDE RECORDS SUMMARY | 2024-10-27 09:29 | XMS_ITS | Encounter Summary ---
Author Organization [facility] Address [address] [place] [address] Care Team Providers Care Train Brakeman Name Role Phone Joelle Rodriguez MD Primary Care Provider [phone] Jv Smith MD Primary Care Provider [phone] Pito Gomez MD Unavailable Unavailable Duke Baxter Primary Care Provider [phone] Encounter Details Date Type Department Care Team Description 08/07/2020 Pt. Non Urgent Medical Question Adult Medicine [facility] [address] [place] [id number] [facility] [address] [place] [address] [id number] Social History Tobacco Use Types Packs/Day Years Used Date Smoking Tobacco: Former Smokeless Tobacco: Former Quit: 01/11/1990 Alcohol Use Standard Drinks/Week Comments Not Asked 0 (1 standard drink = 0.6 oz pur e alcohol) Sex Assigned at Date Recorded Not on file Job Start Date Occupation Industry Not on file Not on file Not on file documented as of this encounter Miscellaneous Notes * Telephone Encounter - Marce Zaman M.A. - 08/07/2020 12:13 PM EDTFrom: Katelin Vasquez To: Roberto Horan Sent: 08/07/2020 12:13 PM EDT Subject: Hand Pain Hello Judith, I am having a really hard time with the pain in my thumbs from the De Quervain's Ten[place]novitis. The pain and swelling in my left ankle has also gotten worse. I am scheduling an appointment for the cortisone shots in my lower back with [facility] in [place]. 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 I will be applying for ssi. I have to have some kind of income and ins urance. Please give me a call so that I may better explain. documented in this encounter Plan of Treatment Not on file documented as of this encounter Visit Diagnoses Not on filedocumented in this encounter Care Teams Train Brakeman Relationship Specialty Start Date End Date Joelle Rodriguez MD [address] [place] [id number] PCP - General Internal Medicine 10/15/11 01/05/22 Jv Smith MD [address] [place] [id number] PCP - General Internal Medicine 01/06/22 01/20/23 Duke Baxter [address] [place] [id number] PCP - General Internal Medicine 01/21/23 Pito Gomez MD [address] [place] [id number] Specialist Cardiovascular Disease 01/12/22 documented as of this encounter
--- OUTSIDE RECORDS SUMMARY | 2024-10-27 09:29 | XMS_ITS | Encounter Summary ---
Author Organization [facility] Address [address] [place] [address] Care Team Providers Care Home Worker Name Role Phone Pito Gomez MD Unavailable Unavailable Duke Baxter Primary Care Provider [phone] Reason for Visit * Reason Onset Date Comments Prior Authorization 10/06/2023 Encounter Details Date Type Department Care Team Description 10/06/2023 Telephone Adult Medicine [address] [address] Duke Baxter [address] [place] [id number] Prior Authorization Social History Tobacco Use Types Packs/Day Years Used Date Smoking Tobacco: Former Passive Smoke Exposure: Past Smokeless Tobacco: Former Quit: 01/11/1990 Alcohol Use Standard Drinks/Week Comments Not Asked 0 (1 standard drink = 0.6 oz pur e alcohol) Sex Assigned at Date Recorded Not on file Job Start Date Occupation Industry Not on file Not on file Not on file documented as of this encounter Miscellaneous Notes * Telephone Encounter - Lianne Zhu M.A. - 10/13/2023 3:06 PM EDT Spoke with Codi from [facility] she states there is a paid claim for the duloxetine on 10/12/23 * Telephone Encounter - Melanie Block - 10/06/2023 9:16 AM EDT Prior Authorization for Medication-do not complete and send this encounter unless you have the fax from the pharmacy. Is this a Cover My Meds request: Yes -- Padilla Code [id number] Name of Medication duloxetine (CYMBALTA) 20 MG capsule Dose of Medication What is the RX # from the faxed refill? How does patient take this med? What Pharmacy did the fax come from: [address] Pharm[facility] fax #: [phone] [employer] Information from fax: What Prescription Plan does the patient have? BIN/PCN if applicable: Cardholder ID: Person Code: Relationship Code: Help desk phone: documented in this encounter Plan of Treatment Not on file documented as of this encounter Visit Diagnoses Not on filedocumented in this encounter Care Teams Home Worker Relationship Specialty Start Date End Date Duke Baxter [address] [place] [id number] PCP - General Internal Medicine 01/21/23 Pito Gomez MD Specialist Cardiovascular Disease 01/12/22 documented as of this encounter
--- OUTSIDE RECORDS SUMMARY | 2024-10-27 09:29 | XMS_ITS | Encounter Summary ---
Author Organization [facility] Address [address] [place] [address] Care Team Providers Care Healthcare Recruiter Name Role Phone Joelle Rodriguez MD Primary Care Provider [phone] Jv Smith MD Primary Care Provider [phone] Pito Gomez MD Unavailable Unavailable Duke Baxter Primary Care Provider [phone] Reason for Visit * Reason Onset Date Comments Medication 09/30/2021 Encounter Details Date Type Department Care Team Description 09/30/2021 Refill Gastroenterology - [place] [address] [facility] [address] [place] [address] Laura Wan MD Medication Social History Tobacco Use Types Packs/Day Years Used Date Smoking Tobacco: Former Smokeless Tobacco: Former Quit: 01/11/1990 Alcohol Use Standard Drinks/Week Comments Not Asked 0 (1 standard drink = 0.6 oz pur e alcohol) Sex Assigned at Date Recorded Not on file Job Start Date Occupation Industry Not on file Not on file Not on file COVID-19 Exposure Response Date Recorded In the last 10 days, have sujatha u been in contact with someone who was confirmed or suspected to have Coronavirus/COVID-19? No / Unsure 10/01/2021 8:14 AM EDT documented as of this encounter Plan of Treatment Not on file documented as of this encounter Visit Diagnoses Not on filedocumented in this encounter Care Teams Healthcare Recruiter Relationship Specialty Start Date End Date Joelle Rodriguez MD [address] [place] [address] [phone] PCP - General Internal Medicine 10/15/11 01/05/22 Jv Smith MD [address] [place] [address] PCP - General Internal Medicine 01/06/22 01/20/23 Duke Baxter [address] [place] [address] PCP - General Internal Medicine 01/21/23 Pito Gomez MD [address] [place] [address] Specialist Cardiovascular Disease 01/12/22 documented as of this encounter
--- OUTSIDE RECORDS SUMMARY | 2024-10-27 09:29 | XMS_ITS | Encounter Summary ---
Author Organization [facility] Address [address] [place] [address] Care Team Providers Care Tourist Cabin Keeper Name Role Phone Joelle Rodriguez MD Primary Care Provider [phone] Jv Smith MD Primary Care Provider [phone] Pito Gomez MD Unavailable Unavailable Duke Baxter Primary Care Provider [phone] Reason for Visit * Reason Onset Date Comments refill request 04/21/2013 Encounter Details Date Type Department Care Team Description 04/21/2013 Refill Adult Medicine [address] [phone] Joelle Rodriguez MD [address] [place] [address] [phone] refill request Social History Tobacco Use Types Packs/Day Years [...] encounter Miscellaneous Notes * Telephone Encounter - Jayla Palomares M.A. - 04/21/2013 3:53 PM EST Faxed to pharmacy * Telephone Encounter - Jayla Palomares M.A. - 04/21/2013 3:44 PM EST Patient called and was told that she has no insurance for office visits / only er visit Please review and advise * Telephone Encounter - Jayla Palomares M.A. - 04/21/2013 3:39 PM EST Patient needs an appt / patients last refill was 02/27 * Telephone Encounter - Nieves Linda - 04/21/2013 3:14 PM EST Patient would like script to be: E-PRESCRIBED/FAXED TO PHARMACY WHEN WAS THE PATIENT'S LAST APPOINTMENT IN ADULT MEDICINE? 02/25/12 WHEN WAS THE LAST TIME THE PATIENT SAW THEIR PCP? 01/26/12 Does patient have an upcoming appointment? No-patient refused appointment, will call back to book appointment patient does not have active insurance (THE MEDICATION REQUESTED IS ON THE MED LIST ABOVE) All of the medications requested were on the CURRENT MEDS list Did you check the Pharmacy information above?: YES Patient wants: 30 -day supply Is this a mail order prescription request ? NO Patients current insurance carrier is: Payor: [facility] Plan: [facility] TYPE III $15/$22 [employer] Product Type: HMO [id number] documented in this encounter Plan of Treatment Not on file documented as of this encounter Visit Diagnoses Not on filedocumented in this encounter Care Teams Tourist Cabin Keeper Relationship Specialty Start Date End Date Joelle Rodriguez MD [address] [place] [address] PCP - General Internal Medicine 10/15/11 01/05/22 Jv Smith MD [address] [place] [address] PCP - General Internal Medicine 01/06/22 01/20/23 Duke Baxter [address] [place] [address] PCP - General Internal Medicine 01/21/23 Pito Gomez MD [address] [place] [address] Specialist Cardiovascular Disease 01/12/22 documented as of this encounter
--- OUTSIDE RECORDS SUMMARY | 2024-10-27 09:29 | XMS_ITS | Encounter Summary ---
Author Organization [facility] Address [address] [place] [address] Care Team Providers Care Car Salter Name Role Phone Jv Smith MD Primary Care Provider [phone] Pito Gomez MD Unavailable Unavailable Duke Baxter Primary Care Provider [phone] Encounter Details Date Type Department Care Team Description 01/06/2022 Pt. Non Urgent Medical Question Adult Medicine [address] [address] Jv Smith MD [address] [place] [address] Social History Tobacco Use Types Packs/Day Years [...] suspected to have Coronavirus/COVID-19? No / Unsure 01/06/2022 2:27 PM EST documented as of this encounter Plan of Treatment Not on file documented as of this encounter Visit Diagnoses Not on filedocumented in this encounter Care Teams Car Salter Relationship Specialty Start Date End Date Jv Smith MD [address] [place] [address] PCP - General Internal Medicine 01/06/22 01/20/23 Duke Baxter [address] [place] [address] PCP - General Internal Medicine 01/21/23 Pito Gomez MD [address] [place] [address] Specialist Cardiovascular Disease 01/12/22 documented as of this encounter
--- OUTSIDE RECORDS SUMMARY | 2024-10-27 09:29 | XMS_ITS | Encounter Summary ---
Author Organization [facility] Address [address] [place] [address] Care Team Providers Care Headliner Installer Name Role Phone Joelle Rodriguez MD Primary Care Provider [phone] Jv Smith MD Primary Care Provider [phone] Pito Gomez MD Unavailable Unavailable Duke Baxter Primary Care Provider [phone] Reason for Visit * Reason Onset Date Comments Medication 09/29/2021 Encounter Details Date Type Department Care Team Description 09/29/2021 Refill Gastroenterology - [place] [address] [facility] [address] [place] [address] Urmila Gooden MD [address] [place] [address] Medication Social History Tobacco Use Types Packs/Day [...] Recorded In the last 10 days, have yo u been in contact with someone who was confirmed or suspected to have Coronavirus/COVID-19? No / Unsure 10/01/2021 8:14 AM EDT documented as of this encounter Plan of Treatment Not on file documented as of this encounter Visit Diagnoses Not on filedocumented in this encounter Care Teams Headliner Installer Relationship Specialty Start Date End Date Joelle Rodriguez MD [address] [place] [address] PCP - General Internal Medicine 10/15/11 01/05/22 Jv Smith MD [address] [place] [address] PCP - General Internal Medicine 01/06/22 01/20/23 Duke Baxter [address] [place] [address] PCP - General Internal Medicine 01/21/23 Pito Gomez MD [address] [place] [address] Specialist Cardiovascular Disease 01/12/22 documented as of this encounter
--- OUTSIDE RECORDS SUMMARY | 2024-10-27 09:29 | XMS_ITS | Encounter Summary ---
Author Organization [facility] Address [address] [place] [address] Care Team Providers Care Water Pollution Specialist Name Role Phone Joelle Rodriguez MD Primary Care Provider [phone] Jv Smith MD Primary Care Provider [phone] Pito Gomez MD Unavailable Unavailable Duke Baxter Primary Care Provider [phone] Reason for Referral * EXTERNAL (Routine) - Authorized/Booked Specialty Diagnoses / Procedures Referred By Dana t Referred To Contact HAND SURGEON Diagnoses Primary osteoarthritis of both hands Procedures REFERRAL TO HAND SURGEON Shyanne Horan FNP [address] [place] [address] [facility] [address] [place] [address] Referral ID Status Reason Start Date Expiration Date V isits Requested Visits Authorized [id number] Authorized/B ooked 03/11/2021 03/11/2022 1 1 Encounter Details Date Type Department Care Team Description 03/11/2021 Pt. Non Urgent Medical Question Adult Medicine [address] [phone] Shyanne Horan FNP [address] [place] [address] [phone] Primary osteoarthritis of both hands (Primary Dx) Social History Tobacco Use Types Packs/Day Years [...] Exposure Response Date Recorded In the last month, have you been in contact with someone who was confirmed or suspected to have Coronavirus / COVID-19? No / Unsure 02/19/2021 9:45 AM EST documented as of this encounter Miscellaneous Notes * Telephone Encounter - Molly Fairchild M.A. - 03/11/2021 4:29 PM ESTFrom: Katelin Vasquez To: Roberto Horan Sent: 03/11/2021 4:26 PM EST Subject: Referral to [facility] I need the referral to the hand specialist like we talked about. I will like it for [facility] please. Thank you documented in this encounter Plan of Treatment Not on file documented as of this encounter Visit Diagnoses Diagnosis Primary osteoarthritis of both hands- Primary documented in this encounter Care Teams Water Pollution Specialist Relationship Specialty Start Date End Date Joelle Rodriguez MD [address] [place] [address] PCP - General Internal Medicine 10/15/11 01/05/22 Jv Smith MD [address] [place] [address] PCP - General Internal Medicine 01/06/22 01/20/23 Duke Baxter [address] [place] [address] PCP - General Internal Medicine 01/21/23 Pito Gomez MD [address] [place] [address] Specialist Cardiovascular Disease 01/12/22 documented as of this encounter
--- OUTSIDE RECORDS SUMMARY | 2024-10-27 09:29 | XMS_ITS | Encounter Summary ---
Author Organization [facility] Address [address] [place] [address] Care Team Providers Care Audit Specialist Name Role Phone Joelle Rodriguez MD Primary Care Provider [phone] Jv Smith MD Primary Care Provider [phone] Pito Gomez MD Unavailable Unavailable Duke Baxter Primary Care Provider [phone] Encounter Details Date Type Department Care Team Description 09/18/2020 Pt. Non Urgent Medical Question Physiatry - [address] [address] Roberto Saldaña, PAAnnaC Social History Tobacco Use Types Packs/Day Years Used Date Smoking Tobacco: Former Smokeless Tobacco: Former Quit: 01/11/1990 Alcohol Use Standard Drinks/Week Comments Not Asked 0 (1 standard drink = 0.6 oz pur e alcohol) Sex Assigned at Date Recorded Not on file Job Start Date Occupation Industry Not on file Not on file Not on file documented as of this encounter Plan of Treatment Not on file documented as of this encounter Visit Diagnoses Not on filedocumented in this encounter Care Teams Audit Specialist Relationship Specialty Start Date End Date Joelle Rodriguez MD [address] [place] [address] PCP - General Internal Medicine 10/15/11 01/05/22 Jv Smith MD [address] [place] [address] PCP - General Internal Medicine 01/06/22 01/20/23 Duke Baxter [address] [place] [address] PCP - General Internal Medicine 01/21/23 Pito Gomez MD [address] [place] [address] Specialist Cardiovascular Disease 01/12/22 documented as of this encounter
--- OUTSIDE RECORDS SUMMARY | 2024-10-27 09:29 | XMS_ITS | Encounter Summary ---
Author Organization [facility] Address [address] [place] [address] Care Team Providers Care Sponge Diver Name Role Phone Joelle Rodriguez MD Primary Care Provider [phone] Jv Smith MD Primary Care Provider [phone] Pito Gomez MD Unavailable Unavailable Duke Baxter Primary Care Provider [phone] Encounter Details Date Type Department Care Team Description 02/19/2015 [facility] [address] [place] [address] Rafat Sinclair MD Social History Tobacco Use Types Packs/Day Years [...] on file documented as of this encounter Procedures Procedure Name Priority Date/Time Associated Diagnosis Comments OUTSIDE EKG Routine 02/19/2015 documented in this encounter Results * OUTSIDE EKG (02/19/2015) Provider Abstract CARDIOLOGY documented in this encounter Visit Diagnoses Not on filedocumented in this encounter Care Teams Sponge Diver Relationship Specialty Start Date End Date Joelle Rodriguez MD [address] [place] [address] PCP - General Internal Medicine 10/15/11 01/05/22 Jv Smith MD [address] [place] [address] PCP - General Internal Medicine 01/06/22 01/20/23 Duke Baxter [address] [place] [address] PCP - General Internal Medicine 01/21/23 Pito Gomez MD [address] [place] [address] Specialist Cardiovascular Disease 01/12/22 documented as of this encounter
--- OUTSIDE RECORDS SUMMARY | 2024-10-27 09:29 | XMS_ITS | Encounter Summary ---
Author Organization [facility] [place] [facility] Address [address] [place] [address] Care Team Providers Care District Plant Supervisor Name Role Phone Pito Gomez MD Unavailable Unavailable Duke Baxter Primary Care Provider [phone] Encounter Details Date Type Department Care Team Description 09/14/2023 Pt. Non Urgent Medical Question Adult Medicine [facility] [place] [place] [address] [place] [address] Fay Grewal PA-C [address] [place] [address] Social History Tobacco Use Types Packs/Day Years [...] on file documented as of this encounter Progress Notes * Zee Beach L.P.N. - 09/14/2023 11:00 AM EDT I placed a call to [facility] and Faina will check in with their PA person and get back to me... documented in this encounter Miscellaneous Notes * Telephone Encounter - Zee Beach L.P.N. - 09/14/2023 10:43 AM EDTFrom: Katelin Vasquez To: Andrew Grewal Sent: 09/14/2023 10:37 AM EDT Subject: Left Ankle Hello I am hoping that my Insurance has given the OK to schedule my MRI of my left ankle. I was walking out my apartment and I explained pain in my left ankle . The pain felt like as if I stepped a a long nail. The pain was bad enough to stop me in my tracks and I fell backwards on to the ground. I will call my insurance as well to see if it can be scheduled. Thank you documented in this encounter Plan of Treatment Not on file documented as of this encounter Visit Diagnoses Not on filedocumented in this encounter Care Teams District Plant Supervisor Relationship Specialty Start Date End Date Duke Baxter [address] [place] [address] PCP - General Internal Medicine 01/21/23 Pito Gomez MD Specialist Cardiovascular Disease 01/12/22 documented as of this encounter
--- OUTSIDE RECORDS SUMMARY | 2024-10-27 09:29 | XMS_ITS | Encounter Summary ---
Author Organization [facility] Address [address] [place] [address] Care Team Providers Care Central Scheduler Name Role Phone Pito Gomez MD Unavailable Unavailable Duke Baxter Primary Care Provider [phone] Reason for Visit * Reason Onset Date Comments Medication 12/14/2023 Encounter Details Date Type Department Care Team Description 12/14/2023 Refill Gastroenterology - [place] [address] [facility] [address] [place] [id number] Urmila Gooden MD [address] [place] [address] Medication Social History Tobacco Use Types Packs/Day [...] on filedocumented in this encounter Care Teams Central Scheduler Relationship Specialty Start Date End Date Duke Baxter [address] [place] [address] [phone] PCP - General Internal Medicine 01/21/23 Pito Gomez MD Specialist Cardiovascular Disease 01/12/22 documented as of this encounter
--- OUTSIDE RECORDS SUMMARY | 2024-10-27 09:30 | XMS_ITS | Clinical Summary ---
Author Organization [facility] Address [address] [place] [address] Phone Care Team Providers Care Parking Garage Manager Name Role Phone Duke Baxter MD Primary Care Provider Allergies Active Allergy Reactions Criticality Noted Date Comments Pollen Extracts 07/01/2015 Medications omeprazole (PriLOSEC) [address] capsule TAKE 1 CAPSULE BY MOUTH EVERY DAY 90 capsule 5 Active DULoxetine (CYMBALTA) [address] capsule Take 1 capsule (20 mg total) by mouth 1 (one) time each day. Do not crush or chew. 90 capsule 1 5 Active lisinopriL (PRINIVIL,ZESTRI L) 20 mg tablet Take 1 tablet (20 mg total) by mouth 1 (one) time each day. 90 tablet 1 5 Active mirtazapine (REMERON) 7.5 mg tablet Take 1 tablet (7.5 mg total) by mouth at bedtime. 90 tablet 5 Active hydroCHLOROthiaz angeles (HYDRODIURIL) 25 mg tablet Take 1 tablet (25 mg total) by mouth 1 (one) time each day. 90 tablet 1 5 Active bisacodyL (DULCOLAX) 5 mg EC tablet 4 10/07/19 25 Discontinu ed(Therapy completed) polyethylene glycol (GoLYTELY) 236-22.74-6.74 -5.86 gram solution Take 240 mL by mouth. 4 10/07/19 25 Discontinu ed(Therapy completed) ibuprofen (ADVIL,MOTRIN) 600 mg tablet Take 1 tablet (600 mg total) by mouth 3 (three) times a day with meals. 30 each 5 10/07/19 25 Discontinu ed(Therapy completed) hydroCHLOROthiaz angeles (MICROZIDE) 12.5 mg capsule Take 1 capsule (12.5 mg total) by mouth 1 (one) time each day. 90 capsule 1 5 10/07/19 25 Discontinu ed(Dose adjustment ) tirzepatide, weight loss, (Zepbound) 2.5 mg/0.5 mL injectionIndicat ions:Prediabetes ,Primary hypertension,Mix ed hyperlipidemia,C lass 2 severe obesity due to excess calories with serious comorbidity and body mass index (BMI) of 35.0 to 35.9 in adult ([facility] V24, [facility] V28) Inject 0.5 mL (2.5 mg total) under the skin every 7 (seven) days. 2 mL 5 10/07/19 25 Discontinu ed(Therapy completed) Active Problems Problem Noted Date Diagnosed Date Arthritis of carpometacarpal (CMC) joint of left thumb 02/17/2024 Gastroesophageal reflux disease without esophagi tis 12/15/2023 Prediabetes 12/15/2023 Anxiety and depression 11/17/2023 Arthritis of carpometacarpal (CMC) joint of both thumbs 11/17/2023 Primary hypertension 07/01/2023 Chest pain 06/18/2022 Primary osteoarthritis of both hands 02/19/2021 Actinic keratosis 05/02/2020 Overview (11/17/2023): HAK left lateral ankle - ED&C 04/2020 Hyperlipidemia 09/25/2019 Tendinitis, de Quervain's 09/25/2019 Chronic nausea 04/04/2018 Elevated glucose 04/04/2018 Lumbar spondylolysis 07/01/2015 Overweight 07/01/2015 Encounters Date Type Department Care Team Description 10/06/2024 10:00 AM EDT Office Visit Adult Medicine [address] [phone] Fay Grewal PA Primary hypertension (Primary Dx); Anxiety and depression; Prediabetes; Mixed hyperlipidemia; Gastroesophageal reflux disease without esophagitis; Primary insomnia; Tinnitus of both ears; Encounter for screening mammogram for malignant neoplasm of breast 09/21/2024 Telephone Adult Medicine [address] [phone] Duke Baxter MD 09/05/2024 Telephone Adult Medicine [address] [phone] Duke Baxter MD 09/01/2024 11:23 AM EDT - 09/01/2024 11:59 PM EDT Hospital Encounter [address] [phone] Acute pain of left knee Discharge Disposition: Home or Self Care 09/01/2024 11:15 AM EDT Office Visit Adult Medicine [address] [phone] Fay Grewal PA Primary hypertension (Primary Dx); Prediabetes; Mixed hyperlipidemia; Anxiety and depression; Primary osteoarthritis of both knees; Acute pain of left knee; Primary osteoarthritis of both hands; Overweight; Ptosis of left eyelid from Last 3 Months Immunizations Name Administration Dates Next Due Influenza Quadravalent, MDCK , 0.5ml, preservative free (Flucelvax) 6mo and older 01/06/2022 Influenza Quadrivalent, with preservative (Fluzone; Afluria) 6mo and older 11/08/2023 Influenza trivalent, with pr eservative (Fluzone; Afluria) 6mo and older 03/05/2016,02/05/2015,12/15/2011 Td Tetanus diptheria (Tdvax) 7yo and older 11/07 Tdap Tetanus diptheria acell ular pertussis (Boostrix; Adacel) 7yo and older 11/11/2009 Zoster recombinant (Shingrix ) 19yo and older 01/13/2018,10/10/2017 Surgical History Surgery Date Site/Laterality Comments HYSTERECTOMY EYE SURGERY ANKLE ARTHROPLASTY Left Medical History Medical History Date Comments Hypertension GERD (gastroesophageal reflux disease) Anxiety Arthritis Social History Tobacco Use Types Packs/Day Years Used Date Smoking Tobacco: Former Cigarettes Tobacco Cessation:Counseling Given: Not Answered Housing Instability Answer Date Recorde d Are you worried that in the next 2 months you may not have stable housing? No 09/01/2024 Food Access & Nutrition Answer Date Rec orded Do you have access to a vari ety of food including fruits and vegetables? No 09/01/2024 Access to Healthcare Answer Date Record ed Within the last 3 months, ho w many times did you visit the emergency department for your medical care? 0 09/01/2024 Health Literacy Answer Date Recorded How often do you need to hav e someone help you when you read instructions, pamphlets, or other written material from your doctor or pharmacy? Rarely 09/01/2024 Caregiver: How often do you need to have someone help you when you read instructions, pamphlets, or other written material from your doctor or pharmacy? Not on file 09/01/2024 Financial Risk Answer Date Recorded How hard is it for you to pa y for the very basics like food, housing, medical care, and air conditioning / heating? Hard 09/01/2024 Transportation Answer Date Recorded Has the lack of transportati on kept you from meetings, work, or from getting things needed for daily living? Yes Has the lack of transportati on kept you from medical appointments or from getting medications? No 09/01/2024 Social Isolation Answer Date Recorded How often do you feel lonely or isolated from th ose around you? Often 09/01/2024 Food Risk Answer Date Recorded Within the past 12 months we worried whether our food would run out before we got money to buy more. Often true 09/01/2024 Within the past 12 months th e food we bought just didn't last and we didn't have money to get more. Often true 09/01/2024 Dependent Care Answer Date Recorded Do you need help finding or paying for care for your loved ones. For example, child neurologist or elderly care for an older adult? No 09/01/2024 Education Answer Date Recorded Do you think completing more education or training, like finishing a GED, going to college, or learning a trade, would be helpful for you? Yes 09/01/2024 Employment and Income Answer Date Recor ded During the last four weeks, have you been actively looking for work? No 09/01/2024 Living Situation Answer Date Recorded What is your living situation? 0 09/01/2024 Interpersonal Safety Answer Date Record ed Physical Abuse 12/24/2023 Verbal Abuse 12/24/2023 Comments Unknown Sex and Gender Information Value Date Recorded Sex Assigned at Female 03/08/2024 5:40 AM EST Legal Sex Female 11:46 PM EST Gender Identity Female 03/08/2024 5:40 AM EST Sexual Orientation Straight 03/08/2024 5: 40 AM EST Obstetrics History Last Filed Vital Signs Vital Sign Reading Time Taken Comments Blood Pressure 156/100 10/06/2024 1:12 PM EDT Pulse 85 10/06/2024 9:36 AM EDT Temperature 36.7 C (98 F) 10/06/2024 9:36 AM EDT Respiratory Rate 16 10/06/2024 9:36 AM EDT Oxygen Saturation 94% 03/08/2024 10:51 AM EST Inhaled Oxygen Concentration - - Weight 92.1 kg (203 lb) 10/06/2024 9:36 AM EDT Height 160 cm (5' 3 ) 10/06/2024 9:36 AM EDT Body Mass Index 35.96 10/06/2024 9:36 AM EDT Plan of Treatment Upcoming Encounters Date Type Department Care Team (Late st Contact Info) Description 05/03/2025 2:00 PM EDT Consult Bariatric Surgery - [address] [place] [address] Yves Sage MD [address] [place] [phone] Health Maintenance Due Date Last Done Comments Hepatitis B Vaccines (1 of 3 - 19+ 3-dose series) 1984 Cervical Cancer Screening: Pap Smear 1986 Pneumococcal Vaccine: 50+ Years (1 of 1 - PCV) 10/20/2015 COVID-19 Vaccine (3 - Pfizer risk series) 05/09/2020 04/11/2020, 03/21/2020 Breast Cancer Screening 04/30/2021 05/01/2019 Colorectal Cancer Screening: Colonoscopy 01/24/2022 Influenza Vaccine (#1) 2024 , 01/06/2022, 10/02/2019, Additional history exists Hypertension/CHF/CAD Annual BMP Blood Test 09/01/2025 09/01/2024, 12/15/2023, 06/22/2023, Additional history exists Social Influencers of Health Screening 09/01/2025 09/01/2024 Cholesterol Screening (Lipid Panel) 09/01/2029 09/01/2024, 06/22/2023, 06/22/2023 DTaP,Tdap,and Td Vaccines (3 - Td or Tdap) 11/07/2033 11/08/2023, 11/11/2009 RSV Immunization Adult Patients (1 - 1-dose 75+ series) 2040 Zoster Vaccines Completed 01/13/2018, 10/10/2017 Depression Screening Completed 08/29/2024, 11/08/19 24 HIB Vaccines Aged Out No longer eligi ble based on patient's age to complete this topic HIV Screening Discontinued HPV Vaccines Aged Out No longer eligi ble based on patient's age to complete this topic Hepatitis A Vaccines Aged Out No long er eligible based on patient's age to complete this topic Hepatitis C Screening Discontinued IPV Vaccines Aged Out No longer eligi ble based on patient's age to complete this topic MMR Vaccines Aged Out No longer eligi ble based on patient's age to complete this topic Meningococcal ACWY Vaccine Aged Out N o longer eligible based on patient's age to complete this topic Meningococcal B Vaccine Aged Out No l onger eligible based on patient's age to complete this topic RSV Immunization Patients Under 20 months Aged Out No longer eligible based on patient's age to complete this topic Varicella Vaccines Aged Out No longer eligible based on patient's age to complete this topic Goals Goal Patient Goal Type Associated Problems Recent Progress Patient-Stated? Author <enter goal here> General Yes Jessica Pickering OT Note: OT REGAIN PAINFREE FUNCTIONAL USE LEFT HAND <OT STGS 8 TO 10 VISITSenter goal here> General No Jessica Pickering OT Note: # 1 NO VISIBLE EDEMA # 2 PARTICIPATE IN SCAR MANAGEMENT TO HAVE NO ADHERENCE # 3 IMPROVE LEFT SUPINATION FROM 50 TO 70 DEGREES TO RECEIVE ITEMS INTO PALM # 4 IMPROVE WRIST EXTENSION FROM 30 TO 60 DEGREES WITH GOOD STRENGTH TO WEIIGHTBEAR # 5 IMPROVE LEFT THUMB EXTENSION FROM 30 TO 50 DEGREES UPON REACH # 6 ACHIEVE INDEX FINGER FLEXION TO THE DPC Medical Devices Implanted Type Area Cook Helper Preserves Device Identifier Shelf Expiration Date Model / Serial / Lot Blackstone Sut Quick Mini 3-0 Orth - Sna - [id number] Implanted:Qty : 1 on 03/08/2024 by Jess Ferrer MD at [facility] [employer]plants Sports Med Left: Thumb JNJ DEPUY MITEK [id number] 08/14/2026 [id number] / NA / [id number] Ultrabrace Implanted:Qty : 1 on 12/24/2023 by Jabier Rain DPM at [facility] Left: Fibula [employer] 10/26/2026 [id number] / N/A / [id number] Procedures Procedure Name Priority Date/Time Associated Diagnosis Comments CBC WITH AUTO DIFFERENTIAL Routine 09/01/2024 11:51 AM EDT Primary hypertension Prediabetes Primary osteoarthritis of both hands Mixed hyperlipidemia Anxiety and depression Primary osteoarthritis of both knees Overweight CBC AND DIFFERENTIAL Routine 09/01/2024 11:51 AM EDT Primary hypertension Prediabetes Primary osteoarthritis of both hands Mixed hyperlipidemia Anxiety and depression Primary osteoarthritis of both knees Overweight HEMOGLOBIN A1C Routine 09/01/2024 11:51 AM EDT Primary hypertension Prediabetes Primary osteoarthritis of both hands Mixed hyperlipidemia Anxiety and depression Primary osteoarthritis of both knees Overweight COMPREHENSIVE METABOLIC PANEL Routine 09/01/2024 11:51 AM EDT Primary hypertension Prediabetes Primary osteoarthritis of both hands Mixed hyperlipidemia Anxiety and depression Primary osteoarthritis of both knees Overweight LIPID PANEL WITH REFLEX TO DIRECT LDL Routine 09/01/2024 11:51 AM EDT Primary hypertension Prediabetes Primary osteoarthritis of both hands Mixed hyperlipidemia Anxiety and depression Primary osteoarthritis of both knees Overweight XR KNEE 4+ VIEWS LEFT Routine 09/01/2024 11:33 AM EDT Acute pain of left knee HM DEPRESSION SCREENING Routine 11/08/2023 SCR MAMMO BI INCL CAD Routine 05/01/2019 9:58 AM EDT Encounter for other screening for malignant neoplasm of breast from Last 3 Months or Most Recently Relevant to Health Maintenance Results * (ABNORMAL) Lipid panel with reflex to direct LDL (09/01/2024 11:51 AM EDT) Cholesterol 234(H) 0 - 200 mg/dL LAB CHEMISTRY METHOD 09/01/2024 3:[address] [facility] Triglycerides 87 0 - 150 mg/dL LAB CHEMISTRY METHOD 09/01/2024 3:[address] [facility] HDL 66 >=40 mg/dL LAB CHEMISTRY METHOD 09/01/2024 3:[address] [facility] LDL Calculated 151(H) 0 - 100 mg/dL LAB CHEMISTRY METHOD 09/01/2024 3:[address] [facility] VLDL Cholesterol Jewel 17.4 mg/dL LAB CHEMISTRY METHOD 09/01/2024 3:[address] [facility] Non HDL Chol. (LDL+VLDL) 168(H) <145 mg/dL LAB CHEMISTRY METHOD 09/01/2024 3:[address] [facility] Chol/HDL Ratio 3.5 0.0 - 4.4 LAB CHEMISTRY METHOD 09/01/2024 3:[address] [facility] Blood Venous blood specimen / Unknown Venipuncture / Unknown 09/01/2024 11:51 AM EDT 09/01/2024 11:51 AM EDT us Fay MISTRY LAB BLOOD ORDERABLES Fin al Result [facility] [address] [place] [address], [place] [phone] * (ABNORMAL) CBC auto differential (09/01/2024 11:51 AM EDT) [facility] WBC 10.6 4.8 - 10.8 K/mcL LAB HEMETOLOGY [facility] RBC 4.90(H) 3.80 - 4.80 M/mcL LAB HEMETOLOGY METHOD 09/01/2024 2:[address] [facility] Hemoglobin 13.6 11.5 - 16.0 g/dL LAB HEMETOLOGY METHOD 09/01/2024 2:22 PM [facility] Hematocrit 43.0 35.0 - 47.0 % LAB HEMETOLOGY METHOD 09/01/2024 2:[facility] MCV 87.2 79.0 - 98.0 FL LAB HEMETOLOGY METHOD 09/01/2024 2:[address] [facility] MCH 27.6 27.0 - 32.0 pcg LAB HEMETOLOGY METHOD 09/01/2024 2:22 PM [facility] MCHC 31.6(L) 32.0 - 37.0 g/dL LAB HEMETOLOGY METHOD 09/01/2024 2:22 PM [facility] RDW 13.9 11.0 - 15.0 % LAB HEMETOLOGY METHOD 09/01/2024 2:[address] [facility] Platelets 400 130 - 400 K/mcL LAB HEMETOLOGY METHOD 09/01/2024 2:[facility] MPV 10.7 7.0 - 11.0 FL LAB HEMETOLOGY METHOD 09/01/2024 2:[facility] NRBC 0.0 <1.0 % LAB HEMETOLOGY METHOD 09/01/2024 2:[facility] NRBC Absolute 0.00 <0.10 K/mcL LAB HEMETOLOGY METHOD 09/01/2024 2:[address] [facility] Neutrophils Relative 74.8 % LAB HEMETOLOGY METHOD 09/01/2024 2:[facility] Lymphocytes Relative 18.9 % LAB HEMETOLOGY METHOD 09/01/2024 2:[facility] Monocytes Relative 5.0 % LAB HEMETOLOGY METHOD 09/01/2024 2:22 PM [facility] Eosinophils Relative 0.7 % LAB HEMETOLOGY METHOD 09/01/2024 2:22 PM [facility] Basophils Relative 0.3 % LAB HEMETOLOGY METHOD 09/01/2024 2:22 PM [facility] Immature Granulocytes Relative 0.3 % LAB HEMETOLOGY METHOD 09/01/2024 2:22 PM [facility] Neutrophils Absolute 7.92(H) 1.50 - 7.00 K/mcL LAB HEMETOLOGY METHOD 09/01/2024 2:22 PM [facility] Lymphocytes Absolute 2.00 1.00 - 5.00 K/mcL LAB HEMETOLOGY METHOD 09/01/2024 2:22 PM [facility] Monocytes Absolute 0.53 0.20 - 1.00 K/mcL LAB HEMETOLOGY METHOD 09/01/2024 2:[facility] Eosinophils Absolute 0.07 0.00 - 0.50 K/mcL LAB HEMETOLOGY METHOD 09/01/2024 2:22 PM [facility] Basophils Absolute 0.03 0.00 - 0.20 K/mcL LAB HEMETOLOGY METHOD 09/01/2024 2:22 PM [facility] Immature Granulocytes Absolute 0.03 0.00 - 0.03 K/mcL LAB HEMETOLOGY METHOD 09/01/2024 2:[address] [facility] Blood Venous blood specimen / Unknown Venipuncture / Unknown 09/01/2024 11:51 AM EDT 09/01/2024 11:51 AM EDT Fay Crowder Banessa MISTRY LAB BLOOD ORDERABLES Fin al Result Performing Organization Address [facility]/ZIP Co de Phone Number [facility] [address] [place] [address], [place] [phone] * Hemoglobin A1c (09/01/2024 11:51 AM EDT) [facility] Hemoglobin A1C 5.9 <6.5 % LAB CHEMISTRY METHOD 09/01/2024 10:[address] [facility] Mean Bld Glu Estim. 123 mg/dL LAB CHEMISTRY METHOD 09/01/2024 10:[address] [facility] Blood Venous blood specimen / Unknown Venipuncture / Unknown 09/01/2024 11:51 AM EDT 09/01/2024 11:51 AM EDT Fay Lakesha MISTRY LAB BLOOD ORDERABLES Fin al Result Performing Organization Address [facility] de Phone Number [facility] [address] [place] [address], [place] [phone] * Comprehensive metabolic panel (09/01/2024 11:51 AM EDT) [facility] Sodium 138 133 - 145 mmol/L LAB CHEMISTRY METHOD 09/01/2024 3:[address] [facility] Potassium 3.9 3.5 - 5.5 mmol/L LAB CHEMISTRY METHOD 09/01/2024 3:[address] [facility] Chloride 105 96 - 110 mmol/L LAB CHEMISTRY METHOD 09/01/2024 3:[address] [facility] CO2 28 21 - 32 mmol/L LAB CHEMISTRY METHOD 09/01/2024 3:03 PM [facility] Anion Gap 5 3 - 11 LAB CHEMISTRY METHOD 09/01/2024 3:03 PM [facility] Glucose 89 70 - 100 mg/dL LAB CHEMISTRY METHOD 09/01/2024 3:03 PM [facility] BUN 10 5 - 25 mg/dL LAB CHEMISTRY METHOD 09/01/2024 3:03 PM [facility] Creatinine 0.68 0.50 - 1.10 mg/dL LAB CHEMISTRY METHOD 09/01/2024 3:03 PM [facility] eGFR 101 >=60 mL/min/1. 73m2 LAB CHEMISTRY METHOD 09/01/2024 3:03 PM [facility] Comment:Calculation based on the Chronic Kidney Disease Epidemiology Collaboration (CKD-EPI) equation refit without adjustment for race. BUN/Creatinine Ratio 14.7 LAB CHEMISTRY METHOD 09/01/2024 3:03 PM [facility] Calcium 9.0 8.5 - 10.5 mg/dL LAB CHEMISTRY METHOD 09/01/2024 3:03 PM [facility] AST (SGOT) 16 10 - 42 unit/L LAB CHEMISTRY METHOD 09/01/2024 3:03 PM [facility] ALT (SGPT) 30 10 - 60 unit/L LAB CHEMISTRY METHOD 09/01/2024 3:03 PM [facility] Alkaline Phosphatase 100 42 - 121 unit/L LAB CHEMISTRY METHOD 09/01/2024 3:03 PM [facility] Total Protein 6.9 6.0 - 8.0 g/dL LAB CHEMISTRY METHOD 09/01/2024 3:03 PM [facility] Albumin 3.5 3.2 - 5.0 g/dL LAB CHEMISTRY METHOD 09/01/2024 3:03 PM [facility] Total Bilirubin 0.7 0.0 - 1.4 mg/dL LAB CHEMISTRY METHOD 09/01/2024 3:[address] [facility] Blood Venous blood specimen / Unknown Venipuncture / Unknown 09/01/2024 11:51 AM EDT 09/01/2024 11:51 AM EDT Fay MISTRY LAB BLOOD ORDERABLES Fin al Result [facility] [address] [place] [address], [place] [phone] * XR Knee 4+ Views Left (09/01/2024 11:33 AM EDT) Anatomical Region Laterality Modality Lower Extremities, Knee Left Radiogra phic Imaging 09/01/2024 6:19 PM EDT Impressions 09/01/2024 6:21 PM EDT No acute fracture or dislocation of the left knee. -------- FINAL REPORT -------- Dictated By: Bebe Gaston Dictated Date: 09/01/2024 18:19 ET Assigned Physician: Bebe Gaston Reviewed and Electronically Signed By: Bebe Gaston Signed Date: 09/01/2024 18:21 ET Workstation ID: [id number] Transcribed By: Self Edit Transcribed Date: 09/01/2024 18:19 ET Narrative 09/01/2024 6:21 PM EDT HISTORY: LEFT KNEE PAIN, INTERMITTENT TECHNIQUE: 4 views of the left knee COMPARISON: None FINDINGS: No acute fracture or dislocation is seen. There is no joint effusion present. The medial and lateral joint spaces appear normal. Soft tissues are unremarkable. Procedure Note Bebe Gaston MD - 09/01/2024 HISTORY: LEFT KNEE PAIN, INTERMITTENT TECHNIQUE: 4 views of the left knee COMPARISON: None FINDINGS: No acute fracture or dislocation is seen. There is no joint effusionpresent. The medial and lateral joint spaces appear normal. Soft tissuesare unremarkable. IMPRESSION: No acute fracture or dislocation of the left knee. -------- FINAL REPORT -------- Dictated By: Bebe Gaston Dictated Date: 09/01/2024 18:19 ET Assigned Physician: Bebe Gaston Reviewed and Electronically Signed By: Bebe Gaston Signed Date: 09/01/2024 18:21 ET Workstation ID: [id number] Transcribed By: Self Edit Transcribed Date: 09/01/2024 18:19 ET Faykhushi MISTRY IMG XR PROCEDURES Final Result * Depression Screening (11/08/2023) Depression Screening abstracted Historical Provider HEALTH MAINTENANCE Final Result * SCR MAMMO BI INCL CAD (05/01/2019 9:58 AM EDT) Anatomical Region Laterality Modality Radiographic Lianna ging 04/28/2019 10:4 9 AM EDT Narrative 05/01/2019 3:14 PM EDT This is a summary report. The complete report is available in the patient's medical record. If you cannot access the medical record, please contact the sending organization for a detailed fax or copy. Exam: Screening mammogram Findings: Digital bilateral full-field screening mammography is performed and interpreted with the aid of computer-aided detection. Comparison is made with 03/23/2016 and as far back as 04/26/2013. Breast parenchyma is composed of scattered fibroglandular densities. No new suspicious mass, architectural distortion, or suspicious calcifications. Impression: No mammographic evidence of malignancy. BI-RADS 1 - negative 5 year breast cancer risk assessment 1.2 % Lifetime breast cancer risk assessment 9.4 % Breast cancer risk category Low (<15%) Procedure Note Cherelle Reinoso MD - 02/03/2022 This is a summary report. The complete report is available in thepatient's medical record. If you cannot access the medical record, pleasecontact the sending organization for a detailed fax or copy. Exam: Screening mammogram Findings: Digital bilateral full-field screening mammography is performedand interpreted with the aid of computer-aided detection. Comparison ismade with 03/23/2016 and as far back as 04/26/2013. Breast parenchyma is composed of scattered fibroglandular densities. Nonew suspicious mass, architectural distortion, or suspiciouscalcifications. Impression: No mammographic evidence of malignancy. BI-RADS 1 - negative 5 year breast cancer risk assessment 1.2 % Lifetime breast cancer risk assessment 9.4 % Breast cancer risk category Low (<15%) Srinivas Rousseau G[employer]TER IMG XR PROCEDURES Final Result from Last 3 Months or Most Recently Relevant to Health Maintenance Insurance [facility] [place] [address] Advance Directives * Full Code - Default (Latest Code Status on File) Date Activated Date Inactivated Comments 03/08/2024 5:56 AM 03/08/2024 1:54 PM This is orde r is used when code status has not been discussed with the patient, or code status is otherwise unknown/unconfirmed To update the patient's code status, place a code status order. Do not modify or discontinue any currently active code status orders. Care Teams Parking Garage Manager Relationship Specialty Start Date End Date Duke Baxter MD [address] [place] [address] [phone] PCP - General 01/21/23
--- OUTSIDE RECORDS SUMMARY | 2024-10-27 09:30 | XMS_ITS | Encounter Summary ---
Author Organization [facility] Address [address] [place] [address] Care Team Providers Care Director Pharmacy Services Name Role Phone Joelle Rodriguez MD Primary Care Provider [phone] Jv Smith MD Primary Care Provider [phone] Pito Gomez MD Unavailable Unavailable Duke Baxter Primary Care Provider [phone] Encounter Details Date Type Department Care Team Description 02/12/2019 SCAN Medical Records [address] [place] [id number] Abstract, Provider Social History Tobacco Use Types Packs/Day Years [...] Date/Time Associated Diagnosis Comments OUTSIDE EKG Routine 02/12/2019 documented in this encounter Results * OUTSIDE EKG (02/12/2019) Provider Abstract CARDIOLOGY documented in this encounter Visit Diagnoses Not on filedocumented in this encounter Care Teams Director Pharmacy Services Relationship Specialty Start Date End Date Joelle Rodriguez MD [address] [place] [address] PCP - General Internal Medicine 10/15/11 01/05/22 Jv Smith MD [address] [place] [address] PCP - General Internal Medicine 01/06/22 01/20/23 Duke Baxter [address] [place] [address] PCP - General Internal Medicine 01/21/23 Pito Gomez MD [address] [place] [address] Specialist Cardiovascular Disease 01/12/22 documented as of this encounter
--- OUTSIDE RECORDS SUMMARY | 2024-10-27 09:30 | XMS_ITS | Encounter Summary ---
Author Organization [facility] Address [address] [place] [address] Care Team Providers Care House Player Name Role Phone Jv Anderson MD Primary Care Provider [phone] Pito Gomez MD Unavailable Unavailable Duke Baxter Primary Care Provider [phone] Encounter Details Date Type Department Care Team Description 01/20/2023 Pt. Non Urgent Medical Question Adult Medicine [facility] [address] [place] [address] Jv Anderson MD [address] [place] [address] Social History Tobacco Use Types Packs/Day Years [...] encounter Miscellaneous Notes * Telephone Encounter - Khushbu Maynard - 01/21/2023 6:06 AM ESTFrom: Katelin Vasquez To: Albert Anderson Sent: 01/20/2023 1:50 PM EST Subject: reference number This message is for adeel. [facility] call [facility] and changed primary doctor to Say anderson. I was given a name and date as a reference number. The name i was given for a reference number is Olinda Boss 01/20/2023. Hope this is enough to be seen tomorrow. documented in this encounter Plan of Treatment Not on file documented as of this encounter Visit Diagnoses Not on filedocumented in this encounter Care Teams House Player Relationship Specialty Start Date End Date Jv Anderson MD [address] [place] [address] PCP - General Internal Medicine 01/06/22 01/20/23 Duke Baxter [address] [place] [address] PCP - General Internal Medicine 01/21/23 Pito Gomez MD [address] [place] [address] Specialist Cardiovascular Disease 01/12/22 documented as of this encounter
--- OUTSIDE RECORDS SUMMARY | 2024-10-27 09:30 | XMS_ITS | Encounter Summary ---
Author Organization [facility] Address [address] [place] [address] Care Team Providers Care Traffic Chief Name Role Phone Joelle Rodriguez MD Primary Care Provider [phone] Jv Smith MD Primary Care Provider [phone] Pito Gomez MD Unavailable Unavailable Duke Baxter Primary Care Provider [phone] Encounter Details Date Type Department Care Team Description 12/13/2015 Release of Information Medical Records [address] [place] [address] Abstract, Provider Social History Tobacco Use Types [...] on filedocumented in this encounter Care Teams Traffic Chief Relationship Specialty Start Date End Date Joelle Rodriguez MD [address] [place] [address] PCP - General Internal Medicine 10/15/11 01/05/22 Jv Smith MD [address] [place] [address] PCP - General Internal Medicine 01/06/22 01/20/23 Duke Baxter [address] [place] [address] [id number] PCP - General Internal Medicine 01/21/23 Pito Gomez MD [address] [place] [address] Specialist Cardiovascular Disease 01/12/22 documented as of this encounter
--- OUTSIDE RECORDS SUMMARY | 2024-10-27 09:30 | XMS_ITS | Encounter Summary ---
Author Organization [facility] Address [address] [place] [address] Care Team Providers Care Pharmacy Picking Technician Name Role Phone Joelle Rodriguez MD Primary Care Provider [phone] Jv Smith MD Primary Care Provider [phone] Pito Gomez MD Unavailable Unavailable Duke Baxter Primary Care Provider [phone] Reason for Visit * Reason Onset Date Comments Testing 07/29/2015 Encounter Details Date Type Department Care Team Description 07/29/2015 Telephone Radiology - [place] [address] [place], [place] [phone] Shyanne Horan FNP [address] [place], [place] [phone] Testing Social History Tobacco Use Types Packs/Day Years [...] encounter Miscellaneous Notes * Telephone Encounter - Socorro Thomas - 07/29/2015 11:01 AM EDT Katelin Vasquez was scheduled for an Ultrasound on 07/09/15 and 07/09/15; however Katelin Vasquez did not show for her appointment. We have made several attempts by telephone on 07/01/15 as well as sent a letter on 07/16/15 to reschedule the appointment and were unsuccessful; therefore we are removing the test from our Scheduled Orders Report. Please note that this test must be reordered if required in the future. Thank you, Radiology documented in this encounter Plan of Treatment Not on file documented as of this encounter Visit Diagnoses Not on filedocumented in this encounter Care Teams Pharmacy Picking Technician Relationship Specialty Start Date End Date Joelle Rodriguez MD [address] [place] [address] PCP - General Internal Medicine 10/15/11 01/05/22 Jv Smith MD [address] [place] [address] PCP - General Internal Medicine 01/06/22 01/20/23 Duke Baxter [address] [place] [address] PCP - General Internal Medicine 01/21/23 Pito oGmez MD [address] [place] [address] Specialist Cardiovascular Disease 01/12/22 documented as of this encounter
--- OUTSIDE RECORDS SUMMARY | 2024-10-27 09:30 | XMS_ITS | Encounter Summary ---
Author Organization [facility] Address [address] [place] [address] Care Team Providers Care Digital Imaging Specialist Name Role Phone Pito Gomez MD Unavailable Unavailable Duke Baxter Primary Care Provider [phone] Reason for Visit * Reason Onset Date Comments DME Request 12/07/2023 Encounter Details Date Type Department Care Team Description 12/07/2023 Pt. Non Urgent Medical Question Adult Medicine [address] [address] Fay Grewal PA-C [address] [place] [address] Social History Tobacco Use Types Packs/Day Years [...] encounter Miscellaneous Notes * Telephone Encounter - Liya Thakur L.P.N. - 12/07/2023 10:00 AM EDTFrom: Katelin Vasquez To: Andrew Grewal Sent: 12/07/2023 9:41 AM EDT Subject: Ankle surgery Hello I will be getting ankle surgery soon and will need a commode. I live in a two story apartment and the bathroom is upstairs and I sleep downstairs. I???m not sure if I can get one or need a script sent to [facility]. If i can get one, please shave a script sent to [facility] . documented in this encounter Plan of Treatment Not on file documented as of this encounter Visit Diagnoses Not on filedocumented in this encounter Care Teams Digital Imaging Specialist Relationship Specialty Start Date End Date Duke Baxter [address] [place] [address] PCP - General Internal Medicine 01/21/23 Pito Gomez MD Specialist Cardiovascular Disease 01/12/22 documented as of this encounter
--- OUTSIDE RECORDS SUMMARY | 2024-10-27 09:30 | XMS_ITS | Encounter Summary ---
Author Organization [facility] Address [address] [place] [address] Care Team Providers Care Truss Builder Name Role Phone Jv Smith MD Primary Care Provider [phone] Pito Gomez MD Unavailable Unavailable Duke Baxter Primary Care Provider [phone] Encounter Details Date Type Department Care Team Description 06/23/2022 SCAN Medical Records [address] [place], [place] [phone] [place] [address] Social History Tobacco Use Types Packs/Day Years [...] suspected to have Coronavirus/COVID-19? No / Unsure 06/26/2022 12:42 PM EDT documented as of this encounter Plan of Treatment Not on file documented as of this encounter Visit Diagnoses Not on filedocumented in this encounter Care Teams Truss Builder Relationship Specialty Start Date End Date Jv Smith MD [address] [place], [place] [phone] PCP - General Internal Medicine 01/06/22 01/20/23 Duke Baxter [address] [place], [place] [phone] PCP - General Internal Medicine 01/21/23 Pito Gomez MD [address] [place] [address] Specialist Cardiovascular Disease 01/12/22 documented as of this encounter
--- OUTSIDE RECORDS SUMMARY | 2024-10-27 09:30 | XMS_ITS | Encounter Summary ---
Author Organization [facility] Address [address] [place] [address] Care Team Providers Care Pushcart Peddler Name Role Phone Joelle Rodriguez MD Primary Care Provider Jv Smith MD Primary Care Provider [phone] Pito Gomez MD Unavailable Unavailable Duke Baxter Primary Care Provider [phone] Reason for Visit * Reason Onset Date Comments poison cory 11/15/2015 Encounter Details Date Type Department Care Team Description 11/15/2015 Telephone Adult Medicine [address] [phone] Joelle Rodriguez MD [address] [place] [address] [phone] poison cory Social History Tobacco Use Types Packs/Day Years [...] encounter Miscellaneous Notes * Telephone Encounter - Jose Martin Hwang L.P.N. - 11/15/2015 1:57 PM EDT Mack was treated for poison cory On 11/11 still on a Prednisone taper She is having problems with it still spreading Her concern is her knees are swollen and warm Covered with blisters She think shehas an infection Appt today with Dr. Alfaro at 2:30 * Telephone Encounter - Nancy Bolanos - 11/15/2015 11:52 AM EDT Symptoms patient is presenting: patient is calling back. She states that the poison cory is clearingup but her knee caps has bubbles and her left leg is swollen and warm. She is afraid that she mighthave an infection. If pain or injury related was it due to an accident at work or from a motor vehicle accident? NO If yes, gather 3rd alliance party insurance information Date of accident/Injury: How long has patient had these symptoms?: N/A PCP: Joelle Rodriguez Payor: [employer] FFS / Plan: [employer] CARE PLUS PLAN / Product Type: MEDICAID RISK documented in this encounter Plan of Treatment Not on file documented as of this encounter Visit Diagnoses Not on filedocumented in this encounter Care Teams Pushcart Peddler Relationship Specialty Start Date End Date Joelle Rodriguez MD [address] [place] [address] PCP - General Internal Medicine 10/15/11 01/05/22 Jv Smith MD [address] [place] [address] PCP - General Internal Medicine 01/06/22 01/20/23 Duke aBxter [address] [place] [address] PCP - General Internal Medicine 01/21/23 Pito Gomez MD [address] [place] [address] Specialist Cardiovascular Disease 01/12/22 documented as of this encounter
--- OUTSIDE RECORDS SUMMARY | 2024-10-27 09:30 | XMS_ITS | Encounter Summary ---
Author Organization [facility] Address [address] [place] [address] Care Team Providers Care Electronic Data Interchange Specialist Name Role Phone Joelle Rodriguez MD Primary Care Provider [phone] Jv Smith MD Primary Care Provider [phone] Pito Gomez MD Unavailable Unavailable Duke Baxter Primary Care Provider [phone] Reason for Referral * Non JONATHAN (Routine) - Unable to reach/declined Specialty Diagnoses / Procedures Referred By Contac t Referred To Contact Physiatry Diagnoses Sciatica of left side Procedures REFERRAL TO PHYSIATRY Socorro Baeza PA-C [address] [place] [address] Physi/[address] [address] Referral ID Status Reason Start Date Expiration Date V isits Requested Visits Authorized [id number] NO SHOW 10/22/16 Unable to reach/decli wilner 09/04/2016 09/04/2017 1 1 * Non JONATHAN (Routine) - Authorized/Booked Specialty Diagnoses / Procedures Referred By Contac t Referred To Contact Podiatry Diagnoses Pain of left heel Procedures REFERRAL TO PODIATRY Socorro Baeza PA-C [address] [place] [address] Pod/[place] [id number] Referral ID Status Reason Start Date Expiration Date V isits Requested Visits Authorized [id number] Authorized/B ooked 09/04/2016 09/04/2017 1 1 Reason for Visit * Reason Onset Date Comments Hydrodynamics Professor Feedback 09/04/2016 orthopedics Encounter Details Date Type Department Care Team Description 09/04/2016 Telephone Adult Medicine [facility] [address] [place] [address] Socorro Baeza PA-C [address] [place] [address] Hydrodynamics Professor Feedback (orthopedics) Social History Tobacco Use Types Packs/Day Years [...] Miscellaneous Notes * Telephone Encounter - Socorro Baeza PA-C - 09/04/2016 4:28 PM EDT Please all this patient and let her know her insurance does not cover the orthopedist I have placed2 separate referrals. * Telephone Encounter - Velia Zamora - 09/04/2016 4:12 PM EDT No there is not * Telephone Encounter - Socorro Baeza PA-C - 09/04/2016 10:53 AM EDT Is there an orthopedic who does take her insurance that can do this? She has tried and failed physiatry * Telephone Encounter - Velia Zamora - 09/04/2016 10:46 AM EDT Socorro Mason, Order was placed to orthopedics for left sided sciatica and heel pain. A provider, [facility], who would see the patient for these symptoms does not take her insurance. Therefore, patient would need to be referred to podiatry for heel pain and physiatry for sciatica pain. I have pended 2 orders Please review these new referral requests. The referrals have been pended. Please complete the following: If approved> sign order If denied>please give instructions and route to your practice nursing pool. Practice nurse should inform referrals and the patient if denied. Thank you, Velia Referrals Coordinator [facility] Referrals Department documented in this encounter Plan of Treatment Not on file documented as of this encounter Visit Diagnoses Diagnosis Pain of left heel- Primary Pain in limb Sciatica of left side Sciatica documented in this encounter Care Teams Electronic Data Interchange Specialist Relationship Specialty Start Date End Date Joelle Rodriguez MD [address] [place] [address] PCP - General Internal Medicine 10/15/11 01/05/22 Jv Smith MD [address] [place] [address] PCP - General Internal Medicine 01/06/22 01/20/23 Duke Baxter [address] [place] [address] PCP - General Internal Medicine 01/21/23 Pito Gomez MD [address] [place] [address] Specialist Cardiovascular Disease 01/12/22 documented as of this encounter
--- OUTSIDE RECORDS SUMMARY | 2024-10-27 09:30 | XMS_ITS | Encounter Summary ---
Author Organization [facility] Address [address] [place] [address] Care Team Providers Care Cathead Operator Name Role Phone Jv Smith MD Primary Care Provider [phone] Pito Gomez MD Unavailable Unavailable Duke Baxter Primary Care Provider [phone] Reason for Visit * Reason Onset Date Comments Medication 09/17/2022 Encounter Details Date Type Department Care Team Description 09/17/2022 Refill Gastroenterology - [place] [address] [facility] [address] [place] [address] Aditya Shi MD [address] [facility] [address] [place] [address] Medication Social History Tobacco Use Types Packs/Day [...] on filedocumented in this encounter Care Teams Cathead Operator Relationship Specialty Start Date End Date Jv Smith MD [address] [place] [address] PCP - General Internal Medicine 01/06/22 01/20/23 Duke Baxter [address] [place] [address] PCP - General Internal Medicine 01/21/23 Pito Gomez MD [address] [place] [address] [place] [address] Specialist Cardiovascular Disease 01/12/22 documented as of this encounter
--- OUTSIDE RECORDS SUMMARY | 2024-10-27 09:30 | XMS_ITS | Encounter Summary ---
Author Organization [facility] Address [address] [place] [address] Care Team Providers Care Tunnel Kiln Repairer Name Role Phone Joelle Rodriguez MD Primary Care Provider [phone] Jv Smith MD Primary Care Provider [phone] Pito Gomez MD Unavailable Unavailable Duke Baxter Primary Care Provider [phone] Reason for Visit * Reason Onset Date Comments er follow up 04/26/2019 Encounter Details Date Type Department Care Team Description 04/26/2019 Telephone Adult Medicine [address] [phone] Joelle Rodriguez MD [address] [place] [address] [phone] er follow up Social History Tobacco Use Types Packs/Day Years [...] encounter Miscellaneous Notes * Telephone Encounter - Liz Mills - 04/26/2019 8:55 AM EDT ER follow-up appointment booked YES 04/27/19 If ER or UC follow up, can be booked with APC or MD. If hospital admission follow up MUST be booked with a physician Appointment time: 1PM Provider visit is scheduled with: Joelle Rodriguez MD Hospital/ center patient was treated at: [facility] Date of visit: tba Was this only an ER/UC visit or was the patient admitted to the hospital? ER visit onlyER visit only If patient was admitted what was the date of discharge? N/A Reason/diagnosis for visit or stay: numbness on left side Was visit or stay related to an injury? NO If yes, what was the date of injury (DOI)? N/A If yes, was the injury due to N/A Tests performed: Lab: YES X-ray: YES EKG: YES Other tests. If yes, what?; N/A documented in this encounter Plan of Treatment Not on file documented as of this encounter Visit Diagnoses Not on filedocumented in this encounter Care Teams Tunnel Kiln Repairer Relationship Specialty Start Date End Date Joelle Rodriguez MD [address] [place] [address] PCP - General Internal Medicine 10/15/11 01/05/22 Jv Smith MD [address] [place] [address] PCP - General Internal Medicine 01/06/22 01/20/23 Duke Baxter [address] [place] [address] PCP - General Internal Medicine 01/21/23 Pito Gomez MD [address] [place] [address] Specialist Cardiovascular Disease 01/12/22 documented as of this encounter
--- OUTSIDE RECORDS SUMMARY | 2024-10-27 09:30 | XMS_ITS | Clinical Summary ---
Author Organization [facility] Address [address] [place] [address] Care Team Providers Care Detasseling Crew Supervisor Name Role Phone Pito Gomez MD Unavailable Unavailable Duke Baxter Primary Care Provider [phone] Allergies Active Allergy Reactions Severity Noted Date Comments Seasonal Allergies 07/01/2015 Medications Medication Sig Dispensed Refills Start Date End Date Status omeprazole (PRILOSEC) 20 MG capsule Take 1 Capsule by mouth daily. 90 Capsule 1 07/01/2023 Active duloxetine (CYMBALTA) 20 MG capsule Take 1 Capsule by mouth daily. 90 Capsule 1 11/08/2023 Active hydrochlorothiazide (MICROZIDE) 12.5 MG capsule Take 1 Capsule by mouth daily. 90 Capsule 1 11/08/2023 Active lisinopril (PRINIVIL,ZESTRIL) 20 MG tablet Take 1 Tablet by mouth daily. 90 Tablet 1 11/08/2023 Active hydrOXYzine (ATARAX) 10 MG tablet Take 1 Tablet by mouth every 8 hours as needed for Anxiety. 90 Tablet 0 11/08/2023 Active gabapentin (Neurontin) 100 MG capsule Take 1-2 Capsules by mouth at bedtime. 60 Capsule 3 11/18/2023 Active bisacodyl (DULCOLAX) 5 MG EC tablet Take 2 tablets by mouth right before your first dose of liquid prep. 2 Tablet 0 12/14/2023 Active polyethylene glycol (GoLYTELY) 236 g suspension Take 240 mL by mouth once for 1 dose. Take 4L by mouth once for one dose. May substitue any PEG. Starting at 6PM the night before your procedure drink 1 8oz glasses at your own pace until rectals run clear. 4000 mL 0 12/14/2023 Active Active Problems Problem Noted Date Gastroesophageal reflux disease without esophagitis 12/15/2023 Prediabetes 12/15/2023 Anxiety and depression 11/08/2023 Arthritis of carpometacarpal (CMC) joint of both thumbs 10/22/2023 Primary hypertension 07/01/2023 Chest pain 06/18/2022 Primary osteoarthritis of both hands 06/2021 Actinic keratosis 05/02/2020 Overview: HAK left lateral ankle - ED&C 04/2020 Hyperlipidemia 09/25/2019 Tendinitis, de Quervain's 09/25/2019 Elevated glucose 04/04/2018 Chronic nausea 04/04/2018 Lumbar spondylolysis 07/01/2015 Overweight 07/01/2015 Family history of diabetes mellitus 01/16 Resolved Problems Problem Noted Date Resolved Date Upper abdominal/ left lower ib cage mass 016 10/29/2015 Shoulder pain, left 12/15/2011 07/01/2015 Immunizations Name Administration Dates Next Due COVID-19 (Pfizer) 04/11/2020,03/21/2020 Influenza (> 6 Months) 11/08/2023,2016,02/05/2015, 012 Influenza Vaccine-preservati ve Free-quadrivalent 4 Years 01/06/2022 Shingrix (Patient reported) 01/13/2018, 8 TD (STATE SUPPLIED FOR ADULT S AND CHILDREN) 11/08/2023 Tdap (Adacel) 11/11/2009 Family History Medical History Relation Name Comments Diabetes Brother 2 Cholesterol Level Father Diabetes Father Hypertension Father Stroke Father Cholesterol Level Mother Hypertension Mother Diabetes Sister 2 CA Breast Negative Hx Relation Name Status Comments Brother 1 Alive Brother 2 Father Alive Mother Alive Sister 1 Alive Sister 2 Social History Tobacco Use Types Packs/Day Years Used Date Smoking Tobacco: Former Passive Smoke Exposure: Past Smokeless Tobacco: Former Quit: 01/11/1990 Tobacco Cessation:Counseling Given: Not Answered Alcohol Use Standard Drinks/Week Comments Not Asked 0 (1 standard drink = 0.6 oz pur e alcohol) Sex Assigned at Date Recorded Not on file Job Start Date Occupation Industry Not on file Not on file Not on file Last Filed Vital Signs Vital Sign Reading Time Taken Comments Blood Pressure 116/70 11/18/2023 10:18 AM EDT Pulse 88 11/18/2023 10:18 AM EDT Temperature 35.7 C (96.3 F) 11/18/2023 10:18 AM EDT Respiratory Rate 16 11/18/2023 10:18 AM EDT Oxygen Saturation 98% 06/26/2022 12:47 PM EDT Inhaled Oxygen Concentration - - Weight 93.9 kg (207 lb) 11/24/2023 8:46 AM EDT Height 162.6 cm (5' 4 ) 11/24/2023 8:46 AM EDT Body Mass Index 35.53 11/24/2023 8:46 AM EDT Plan of Treatment Health Maintenance Due Date Last Done Comments HEPATITIS C SCREENING 10/20/1983 CERVICAL CANCER SCREENING 1986 BASELINE HEALTH EXAM 40-64 2005 COLON CANCER SCREENING 10/20/2015 MAMMOGRAM 04/30/2020 05/01/2019, 07/2016, 03/18/2015, Additional history exists BMI CHECK/ADVISE 02/16/2024 12/15/2023, 04/2023, 11/08/2023, Additional history exists DEPRESSION SCREENING/FOLLOWUP 02/16/2024, 12/15/2023, 11/18/2023, Additional history exists SOCIAL NEEDS SCREENING 02/16/2024 11/08/2023 Covid-19 Vaccine (3 - 2022-2 4 season) 2024 04/11/2020, 03/21/2020 INFLUENZA (#1) 2024 11/08/2023, 12/17, 09/30/2016, Additional history exists CHOLESTEROL SCREENING 06/21/2028 06/22/2023 , 02/19/2021, 04/28/2019, Additional history exists PNEUMOCOCCAL VACCINE FOR HIG H RISK PATIENTS (#1) 2030 DTAP/TDAP/TD (3 - Td or Tdap) 11/07/2033 11/08/2023, 11/11/2009 SHINGLES VACCINE Completed 01/13/2018, 10/10/2017 Care Teams Detasseling Crew Supervisor Relationship Specialty Start Date End Date Duke Baxter [address] [place] [address] PCP - General Internal Medicine 01/21/23 Pito Gomez MD Specialist Cardiovascular Disease 01/12/22
--- OUTSIDE RECORDS SUMMARY | 2024-10-27 09:30 | XMS_ITS | Encounter Summary ---
Author Organization [facility] Address [address] [place] [address] Care Team Providers Care Field Director Name Role Phone Pito Gomez MD Unavailable Unavailable Duke Baxter Primary Care Provider [phone] Encounter Details Date Type Department Care Team Description 07/13/2023 Pt. Referral Request [place] [facility] [address] [place] [address] Md Gerson Social History Tobacco Use Types Packs/Day Years [...] on filedocumented in this encounter Care Teams Field Director Relationship Specialty Start Date End Date Duke Baxter [address] [place] [address] PCP - General Internal Medicine 01/21/23 Pito Gomez MD Specialist Cardiovascular Disease 01/12/22 documented as of this encounter
== END 2024-10-27 09:43 | disposition home or self-care (01) ==
PROVIDERS: PCP Internal Medicine; Referring Provider Physician Assistant; Visit Provider Nurse Practitioner Family
DX: M25.561 Pain in right knee (principal); M25.562 Pain in left knee; E66.9 Obesity, unspecified; M17.0 Bilateral primary osteoarthritis of knee; M54.50 Low back pain, unspecified; G89.29 Other chronic pain
CPT/HCPCS: 99204

== ENCOUNTER → 2024-10-27 08:49 | Outpatient (BNVA) | payer OTHER, SELFPAY | PROVIDERS: PCP Internal Medicine; Referring Provider Physician Assistant; Visit Provider Nurse Practitioner Family | DX: M17.0 Bilateral primary osteoarthritis of knee (principal); M25.561 Pain in right knee; M25.562 Pain in left knee; M54.50 Low back pain, unspecified; G89.29 Other chronic pain; E66.9 Obesity, unspecified | CPT/HCPCS: 99202 ==

== ENCOUNTER 2025-01-04 06:16 | Outpatient (REF) | payer OTHER, SELFPAY ==
--- OUTSIDE RECORDS SUMMARY | 2025-01-04 06:18 | XMS_ITS | Encounter Summary ---
Author Organization [facility] Address [address] [place] [address] Care Team Providers Care Maintenance Millwright Name Role Phone Pito Gomez MD Unavailable Unavailable Duke Baxter Primary Care Provider [phone] Reason for Visit * Reason Onset Date Comments Prior Authorization 12/13/2023 Encounter Details Date Type Department Care Team Description 12/13/2023 Telephone Adult Medicine [address] [address] Duke Baxter [address] [place] [address] Prior Authorization Social History Tobacco Use Types [...] Telephone Encounter - Lianne Zhu M.A. - 12/15/2023 10:08 AM EDT Spoke with Monica from [facility] Who stated that the pt picked up the duloxetine on 12/14/23 This is all set. * Telephone Encounter - Fay Grewal PA-C - 12/14/2023 8:58 AM EDT Noted, thank you for clarifying with the patient. FYI to prior auth team. * Telephone Encounter - Nelly Swann R.N. - 12/14/2023 8:40 AM EDT Please see messages below. Patient should NOT be on Fluoxetine(Prozac) (d/c in September) and should be on Duloxetine (Cymbalta). She filled the wrong prescription. If she has been taking Prozac, she should slowly taper off the Prozac before restarting on Cymbalta. Previously she was on on Prozac 30mg daily, she should go down by 10mg per week (Prozac 20mg for 7days, then 10mg for 7 days). Stop all medications for about 1 week then restart on Cymbalta at 20mgdaily. Per the pt , someone did picker and sorter load and unload the Prozac on 11/30 but she is not taking it , she assures me she is taking ONLY Cymbalta as ordered She is advised NOT to take Prozac and destroy the Rx She states she will do this * Telephone Encounter - Lianne Zhu M.A. - 12/14/2023 7:56 AM EDT I spoke with insurance company yesterday on 12/01/23 Pt picked up a 90 day rx for the fluoxetine. So according to claims she is still taking this, that is why the other medication is requiring a prior authorization. Does pt need clarification to not take the fluoxetine? Thank you Please reply back to [id number] Prior Auth Pool Lianne Ríos [facility] Prior Authorization Ext [id number] * Telephone Encounter - Fay Grewal PA-C - 12/13/2023 6:28 PM EDT Patient currently on duloxetine (Cymbalta). She discontinued fluoxetine (Prozac) back in July. No longer taking this. * Telephone Encounter - Lianne Zhu M.A. - 12/13/2023 10:44 AM EDT Spoke with Linda from [facility] about this prior authorization for duloextine, Pt just picked up a 90 day supply on November for fluoxetine. According to a note it seems pt stated that the duloxetine worked better then the fluoxetine. But pt got that script for 90 days.. Is pt switching to the duloxetine or staying on the fluoxetine. Thank you Please reply back to [id number] Prior Auth Pool Lianne Ríos [facility] Prior Authorization Ext [id number] * Telephone Encounter - Lianne Zhu M.A. - 12/13/2023 10:42 AM EDT Pre Authorization for Medication-do not complete and send this encounter unless you have the fax from the pharmacy. ? Is this a Cover My Meds request: Yes -- Padilla Code [id number] Name of Medication DULOXETINE ?? Dose of Medication 20 MG ?? What is the RX # from the faxed refill? ?? How does patient take this med? ?? What Pharmacy did the fax come from: ?? Pharmacy fax #: ?? Third Green Party Information from fax: ?? What Prescription Plan does the patient have? ?? BIN/PCN if applicable: ?? Cardholder ID: ?? Person Code: ?? Relationship Code: ?? Help desk phone: ?? documented in this encounter Plan of Treatment Not on file documented as of this encounter Visit Diagnoses Not on filedocumented in this encounter Care Teams Maintenance Millwright Relationship Specialty Start Date End Date Duke Baxter [address] [place] [address] PCP - General Internal Medicine 01/21/23 Pito Gomez MD Specialist Cardiovascular Disease 01/12/22 documented as of this encounter
--- OUTSIDE RECORDS SUMMARY | 2025-01-04 06:18 | XMS_ITS | Encounter Summary ---
Author Organization [facility] Address [address] [place] [address] Care Team Providers Care Social Welfare Administrator Name Role Phone Pito Gomez MD Unavailable Unavailable Duke Baxter Primary Care Provider [phone] Reason for Visit * Reason Onset Date Comments DME Request 12/07/2023 Encounter Details Date Type Department Care Team Description 12/07/2023 Pt. Non Urgent Medical Question Adult Medicine [address] [address] Fay Grewal PA-C [address] [place] [address] Social History Tobacco Use Types Packs/Day Years [...] on filedocumented in this encounter Care Teams Social Welfare Administrator Relationship Specialty Start Date End Date Duke Baxter [address] [place] [address] PCP - General Internal Medicine 01/21/23 Pito Gomez MD Specialist Cardiovascular Disease 01/12/22 documented as of this encounter
--- OUTSIDE RECORDS SUMMARY | 2025-01-04 06:18 | XMS_ITS | Encounter Summary ---
Author Organization [facility] Address [address] [place] [address] Care Team Providers Care Filter Machine Operator Name Role Phone Pito Gomez MD Unavailable Unavailable Duke Baxter Primary Care Provider [phone] Encounter Details Date Type Department Care Team Description 10/28/2023 SCAN [facility] [address] [facility] [address] [place] [id number] Jess Ferrer MD 175 [facility] [address] [place] [address] Social History Tobacco Use Types Packs/Day Years [...] on filedocumented in this encounter Care Teams Filter Machine Operator Relationship Specialty Start Date End Date Duke Baxter [address] [place] [address] PCP - General Internal Medicine 01/21/23 Pito Gomez MD Specialist Cardiovascular Disease 01/12/22 documented as of this encounter
--- OUTSIDE RECORDS SUMMARY | 2025-01-04 06:18 | XMS_ITS | Encounter Summary ---
Author Organization [facility] Address [address] [place] [address] Care Team Providers Care Gaming Commissioner Name Role Phone Joelle Rodriguez MD Primary Care Provider Jv Smith MD Primary Care Provider [phone] Pito Gomez MD Unavailable Unavailable Duke Baxter Primary Care Provider [phone] Reason for Visit * Reason Onset Date Comments Medication 09/29/2021 Encounter Details Date Type Department Care Team Description 09/29/2021 Refill Gastroenterology - [place] 175 [facility] [address] [place] [address] Urmila Gooden MD [address] [place] [address] Medication Social History Tobacco Use Types [...] on filedocumented in this encounter Care Teams Gaming Commissioner Relationship Specialty Start Date End Date Joelle Rodriguez MD [address] [place] [address] PCP - General Internal Medicine 10/15/11 01/05/22 Jv Smith MD [address] [place] [address] PCP - General Internal Medicine 01/06/22 01/20/23 Duke Baxter [address] [place] [address] PCP - General Internal Medicine 01/21/23 Pito Gomez MD [address] [place] [address] Specialist Cardiovascular Disease 01/12/22 documented as of this encounter
--- OUTSIDE RECORDS SUMMARY | 2025-01-04 06:18 | XMS_ITS | Encounter Summary ---
Author Organization [facility] Address [address] [place] [address] Care Team Providers Care Sap Developer Name Role Phone Joelle Rodriguez MD Primary Care Provider [phone] Jv Smith MD Primary Care Provider [phone] Pito Gomez MD Unavailable Unavailable Duke Baxter Primary Care Provider [phone] Encounter Details Date Type Department Care Team Description 02/19/2015 SCAN Medical Records [address] [place] [address] Rafat Sinclair MD Social History Tobacco Use [...] on filedocumented in this encounter Care Teams Sap Developer Relationship Specialty Start Date End Date Joelle Rodriguez MD [address] [place] [address] PCP - General Internal Medicine 10/15/11 01/05/22 Jv Smith MD [address] [place] [address] PCP - General Internal Medicine 01/06/22 01/20/23 Duke Batxer [address] [place] [address] PCP - General Internal Medicine 01/21/23 Pito Gomez MD [address] [place] [address] Specialist Cardiovascular Disease 01/12/22 documented as of this encounter
--- OUTSIDE RECORDS SUMMARY | 2025-01-04 06:18 | XMS_ITS | Encounter Summary ---
Author Organization [facility] Address [address] [place] [address] Care Team Providers Care Bowl Turner Name Role Phone Joelle Rodriguez MD Primary Care Provider [phone] Jv Smith MD Primary Care Provider [phone] Pito Gomez MD Unavailable Unavailable Duke Baxter Primary Care Provider [phone] Encounter Details Date Type Department Care Team Description 09/18/2020 Pt. Non Urgent Medical Question Physiatry - [address] [address] Roberto Saldaña, PAAnnaC Social History Tobacco Use [...] on filedocumented in this encounter Care Teams Bowl Turner Relationship Specialty Start Date End Date Joelle Rodriguez MD [address] [place] [address] PCP - General Internal Medicine 10/15/11 01/05/22 Jv Smith MD [address] [place] [address] PCP - General Internal Medicine 01/06/22 01/20/23 Duke Baxter [address] [place] [address] PCP - General Internal Medicine 01/21/23 Pito Gomez MD [address] [place] [address] Specialist Cardiovascular Disease 01/12/22 documented as of this encounter
--- OUTSIDE RECORDS SUMMARY | 2025-01-04 06:18 | XMS_ITS | Encounter Summary ---
Author Organization [facility] Address [address] [place] [address] Care Team Providers Care Slip Cover Operator Name Role Phone Pito Gomez MD Unavailable Unavailable Duke Baxter Primary Care Provider [phone] Encounter Details Date Type Department Care Team Description 08/26/2023 Refill Adult Medicine [facility] [address] [place] [address] Jv Smith MD [address] [place] [address] Social History Tobacco Use Types Packs/Day Years [...] encounter Miscellaneous Notes * Telephone Encounter - Christina Camp M.A. - 08/26/2023 1:07 PM EDT Last office visit 07/20/23 Next office visit 09/30/23 Lab Results Component Value Date NA 141 06/22/2023 K 3.8 06/22/2023 CO2 30 06/22/2023 CL 105 06/22/2023 BUN 15 06/22/2023 CREAT 0.74 06/22/2023 GLU 123 06/22/2023 CA 8.6 06/22/2023 GFR 94 06/22/2023 documented in this encounter Plan of Treatment Not on file documented as of this encounter Visit Diagnoses Not on filedocumented in this encounter Care Teams Slip Cover Operator Relationship Specialty Start Date End Date Duke Baxter [address] [place] [address] PCP - General Internal Medicine 01/21/23 Pito Gomez MD Specialist Cardiovascular Disease 01/12/22 documented as of this encounter
--- OUTSIDE RECORDS SUMMARY | 2025-01-04 06:18 | XMS_ITS | Encounter Summary ---
Author Organization [facility] Address [address] [place] [address] Care Team Providers Care Rural Route Carrier Name Role Phone Joelle Rodriguez MD Primary Care Provider [phone] Jv Smith MD Primary Care Provider [phone] Pito Gomez MD Unavailable Unavailable Duke Baxter Primary Care Provider [phone] Encounter Details Date Type Department Care Team Description 03/11/2021 Pt. Referral Request [facility] MyChart [address] [place] [address] [phone] Md Gerson Social History Tobacco Use Types [...] AM EST documented as of this encounter Plan of Treatment Not on file documented as of this encounter Visit Diagnoses Not on filedocumented in this encounter Care Teams Rural Route Carrier Relationship Specialty Start Date End Date Joelle Rodriguez MD [address] [place] [address] [phone] PCP - General Internal Medicine 10/15/11 01/05/22 Jv Smith MD [address] [place] [address] PCP - General Internal Medicine 01/06/22 01/20/23 Duke Baxter [address] [place] [address] PCP - General Internal Medicine 01/21/23 Pito Gomez MD [address] [place] [address] Specialist Cardiovascular Disease 01/12/22 documented as of this encounter
--- OUTSIDE RECORDS SUMMARY | 2025-01-04 06:18 | XMS_ITS | Encounter Summary ---
Author Organization [facility] Address [address] [place] [address] Care Team Providers Care Refinery Operator Helper Crude Unit Name Role Phone Joelle Rodriguez MD Primary Care Provider [phone] Jv Smith MD Primary Care Provider [phone] Pito Gomez MD Unavailable Unavailable Duke Baxter Primary Care Provider [phone] Encounter Details Date Type Department Care Team Description 09/29/2021 Pt. Non Urgent Medical Question Adult Medicine [address] [address] Kei Jeronimo, PAAnnaC [address] [place] [address] Social History Tobacco Use Types Packs/Day Years [...] AM EDT documented as of this encounter Miscellaneous Notes * Telephone Encounter - Molly Fairchild M.A. - 09/29/2021 8:57 AM EDTFrom: Katelin Vasquez To: Gomez Jeronimo Sent: 09/29/2021 8:41 AM EDT Subject: Emergency room visit Meli I went to the ER in [place] for burning ses station and bad headache. Turns out my Blood pressure was very high. I was given a cocktail for upset stomach and blood pressure med. I still feel pretty bad and my stomach paz. I haven???t been able to have a complete bowl movement. Is there something else i should be doing? documented in this encounter Plan of Treatment Not on file documented as of this encounter Visit Diagnoses Not on filedocumented in this encounter Care Teams Refinery Operator Helper Crude Unit Relationship Specialty Start Date End Date Joelle Rodriguez MD [address] [place] [address] PCP - General Internal Medicine 10/15/11 01/05/22 Jv Smith MD [address] [place] [address] PCP - General Internal Medicine 01/06/22 01/20/23 Duke Baxter [address] [place] [address] PCP - General Internal Medicine 01/21/23 Pito Gomez MD [address] [place] [address] Specialist Cardiovascular Disease 01/12/22 documented as of this encounter
--- OUTSIDE RECORDS SUMMARY | 2025-01-04 06:18 | XMS_ITS | Encounter Summary ---
Author Organization [facility] Address [address] [place] [address] Care Team Providers Care Company Doctor Name Role Phone Joelle Rodriguez MD Primary Care Provider [phone] Jv Smith MD Primary Care Provider [phone] Pito Gomez MD Unavailable Unavailable Duke Baxter Primary Care Provider [phone] Reason for Referral * EXTERNAL (Routine) - Authorized/Booked Specialty Diagnoses / Procedures Referred By Dana t Referred To Contact HAND SURGEON Diagnoses Primary osteoarthritis of both hands Procedures REFERRAL TO HAND SURGEON Shyanne Horan FNP [address] [place] [address] [facility] [address] [place] [address] Referral ID Status Reason Start Date Expiration Date V isits Requested Visits Authorized [id number] Authorized/B ooked 03/11/2021 03/11/2022 1 1 Encounter Details Date Type Department Care Team Description 03/11/2021 Pt. Non Urgent Medical Question Adult Medicine [address] [phone] Shyanne Horan FNP [address] [place] [address] [phone] Primary osteoarthritis of both hands (Primary Dx) [...] talked about. I will like it for [facility] please. Thank you documented in this encounter Plan of Treatment Not on file documented as of this encounter Visit Diagnoses Diagnosis Primary osteoarthritis of both hands- Primary documented in this encounter Care Teams Company Doctor Relationship Specialty Start Date End Date Joelle Rodriguez MD [address] [place] [address] PCP - General Internal Medicine 10/15/11 01/05/22 Jv Smith MD [address] [place] [address] PCP - General Internal Medicine 01/06/22 01/20/23 Duke Baxter [address] [place] [address] PCP - General Internal Medicine 01/21/23 Pito Gomez MD [address] [place] [address] Specialist Cardiovascular Disease 01/12/22 documented as of this encounter
--- OUTSIDE RECORDS SUMMARY | 2025-01-04 06:18 | XMS_ITS | Encounter Summary ---
Author Organization [facility] Address [address] [place] [address] Care Team Providers Care Social Services Technician Name Role Phone Jv Smith MD Primary Care Provider [phone] Pito Gomez MD Unavailable Unavailable Duke Baxter Primary Care Provider [phone] Reason for Visit * Reason Onset Date Comments Medication 01/13/2022 Encounter Details Date Type Department Care Team Description 01/13/2022 Refill Gastroenterology - [place] 175 [facility] [address] [place] [address] Laura Wan MD Medication Social [...] In the last 10 days, have sujatha bolanos been in contact with someone who was confirmed or suspected to have Coronavirus/COVID-19? No / Unsure 01/06/2022 2:27 PM EST documented as of this encounter Plan of Treatment Not on file documented as of this encounter Visit Diagnoses Not on filedocumented in this encounter Care Teams Social Services Technician Relationship Specialty Start Date End Date Jv Smith MD [address] [place] [address] PCP - General Internal Medicine 01/06/22 01/20/23 Duke Baxter [address] [place] [address] PCP - General Internal Medicine 01/21/23 Pito Gomez MD [address] [place] [address] Specialist Cardiovascular Disease 01/12/22 documented as of this encounter
--- OUTSIDE RECORDS SUMMARY | 2025-01-04 06:18 | XMS_ITS | Encounter Summary ---
Author Organization [facility] Address [address] [place] [address] Care Team Providers Care Mica Layer Name Role Phone Pito Gomez MD Unavailable Unavailable Duke Baxter Primary Care Provider [phone] Reason for Visit * Reason Onset Date Comments Medication 12/14/2023 Encounter Details Date Type Department Care Team Description 12/14/2023 Refill Gastroenterology - [place] 175 [facility] [address] [place] [phone] Urmila Gooden MD [address] [place] [address] Medication Social History Tobacco Use Types Packs/Day [...] on filedocumented in this encounter Care Teams Mica Layer Relationship Specialty Start Date End Date Duke Baxter [address] [place] [address] [phone] PCP - General Internal Medicine 01/21/23 Pito Gomez MD Specialist Cardiovascular Disease 01/12/22 documented as of this encounter
--- OUTSIDE RECORDS SUMMARY | 2025-01-04 06:18 | XMS_ITS | Encounter Summary ---
Author Organization [facility] Address [address] [place] [address] Care Team Providers Care Welding Teacher Name Role Phone Jv Smith MD Primary Care Provider [phone] Pito Gomez MD Unavailable Unavailable Duke Baxter Primary Care Provider [phone] Encounter Details Date Type Department Care Team Description 01/06/2022 Pt. Non Urgent Medical Question Adult Medicine [address] [address] Jv Smith MD [address] [place] [address] Social History Tobacco Use Types Packs/Day Years [...] on filedocumented in this encounter Care Teams Welding Teacher Relationship Specialty Start Date End Date Jv Smith MD [address] [place] [address] PCP - General Internal Medicine 01/06/22 01/20/23 Duke Baxter [address] [place] [address] PCP - General Internal Medicine 01/21/23 Pito Gomez MD [address] [place] [address] Specialist Cardiovascular Disease 01/12/22 documented as of this encounter
--- OUTSIDE RECORDS SUMMARY | 2025-01-04 06:18 | XMS_ITS | Encounter Summary ---
Author Organization [facility] Address [address] [place] [address] Care Team Providers Care Television Journalist Name Role Phone Joelle Rodriguez MD Primary Care Provider [phone] Jv Smith MD Primary Care Provider [phone] Pito Gomez MD Unavailable Unavailable Duke Baxter Primary Care Provider [phone] Reason for Visit * Reason Onset Date Comments refill request 04/21/2013 Encounter Details Date Type Department Care Team Description 04/21/2013 Refill Adult Medicine [address] [phone] Joelle Rodriguez MD [address] [place] [address] [phone] refill request Social History Tobacco Use Types [...] NO Patients current insurance carrier is: Payor: [facility] Plan: [facility] TYPE III $15/$22 [employer] Product Type: HMO [id number] documented in this encounter Plan of Treatment Not on file documented as of this encounter Visit Diagnoses Not on filedocumented in this encounter Care Teams Television Journalist Relationship Specialty Start Date End Date Joelle Rodriguez MD [address] [place] [address] PCP - General Internal Medicine 10/15/11 01/05/22 Jv Smith MD [address] [place] [address] PCP - General Internal Medicine 01/06/22 01/20/23 Duke Baxter [address] [place] [address] PCP - General Internal Medicine 01/21/23 Pito Gomez MD [address] [place] [address] Specialist Cardiovascular Disease 01/12/22 documented as of this encounter
--- OUTSIDE RECORDS SUMMARY | 2025-01-04 06:19 | XMS_ITS | Encounter Summary ---
Author Organization [facility] Address [address] [place] [address] Care Team Providers Care Loss Control Engineer Name Role Phone Joelle Rodriguez MD Primary Care Provider [phone] Jv Smith MD Primary Care Provider [phone] Pito Gomez MD Unavailable Unavailable Duke Baxter Primary Care Provider [phone] Encounter Details Date Type Department Care Team Description 02/03/2016 Skein Winder Report Medical Records [address] [place] [address] Loki Mcbride DO Social History Tobacco Use Types Packs/Day Years [...] on filedocumented in this encounter Care Teams Loss Control Engineer Relationship Specialty Start Date End Date Joelle Rodriguez MD [address] [place] [address] PCP - General Internal Medicine 10/15/11 01/05/22 Jv Smith MD [address] [place] [address] PCP - General Internal Medicine 01/06/22 01/20/23 Duke Baxter [address] [place] [address] PCP - General Internal Medicine 01/21/23 Pito Gomez MD [address] [place] [address] [place] [address] Specialist Cardiovascular Disease 01/12/22 documented as of this encounter
--- OUTSIDE RECORDS SUMMARY | 2025-01-04 06:19 | XMS_ITS | Encounter Summary ---
Author Organization [facility] Address [address] [place] [address] Care Team Providers Care Pourer Metal Name Role Phone Joelle Rodriguez MD Primary Care Provider Jv Smith MD Primary Care Provider [phone] Pito Gomez MD Unavailable Unavailable Duke Baxter Primary Care Provider [phone] Reason for Visit * Reason Onset Date Comments Testing 07/29/2015 Encounter Details Date Type Department Care Team Description 07/29/2015 Telephone Radiology - [place] [address] [place], [place] [phone] Shyanne Horan FNP [address] [place], [place] [phone] Testing Social History Tobacco Use Types Packs/Day [...] on filedocumented in this encounter Care Teams Pourer Metal Relationship Specialty Start Date End Date Joelle Rodriguez MD [address] [place] [address] PCP - General Internal Medicine 10/15/11 01/05/22 Jv Smith MD [address] [place] [address] PCP - General Internal Medicine 01/06/22 01/20/23 Duke Baxter [address] [place] [address] PCP - General Internal Medicine 01/21/23 Pito Gomez MD [address] [place] [address] Specialist Cardiovascular Disease 01/12/22 documented as of this encounter
--- OUTSIDE RECORDS SUMMARY | 2025-01-04 06:19 | XMS_ITS | Encounter Summary ---
Author Organization [facility] Address [address] [place] [address] Care Team Providers Care Bailer Operators Supervisor Name Role Phone Joelle Rodriguez MD Primary Care Provider [phone] Jv Smith MD Primary Care Provider [phone] Pito Gomez MD Unavailable Unavailable Duke Baxter Primary Care Provider [phone] Encounter Details Date Type Department Care Team Description 04/08/2020 Pt. Non Urgent Medical Question Adult Medicine [address] [address] Shyanne Horan FNP [address] [place] [address] Social History Tobacco Use Types Packs/Day Years [...] Telephone Encounter - Molly Fairchild M.A. - 04/08/2020 1:58 PM ESTFrom: Katelin Vasquez To: MUMTAZ Porter Sent: 04/08/2020 12:50 PM EST Subject: Left ankle pain Meli Kimble, I would like to get an X_Ray done on my left ankle. The pain on the top of my foot and around my ankle is worse and very uncomfortable. I recently had a [facility] the [facility] I was seen by Catie James but her results were inconclusive. I do havea Follow up visit with her. I would still like to get an X-ray of left ankle to try and figure out what is causing of the pain. Thanks documented in this encounter Plan of Treatment Not on file documented as of this encounter Visit Diagnoses Not on filedocumented in this encounter Care Teams Bailer Operators Supervisor Relationship Specialty Start Date End Date Joelle Rodriguez MD [address] [place] [address] PCP - General Internal Medicine 10/15/11 01/05/22 Jv Smith MD [address] [place] [address] PCP - General Internal Medicine 01/06/22 01/20/23 Duke Baxter [address] [place] [address] PCP - General Internal Medicine 01/21/23 Pito Gomez MD [address] [place], [place] [id number] Specialist Cardiovascular Disease 01/12/22 documented as of this encounter
--- OUTSIDE RECORDS SUMMARY | 2025-01-04 06:19 | XMS_ITS | Encounter Summary ---
Author Organization [facility] Address [address] [place] [address] Care Team Providers Care Sash Maker Name Role Phone Pito Gomez MD Unavailable Unavailable Duke Baxter Primary Care Provider [phone] Reason for Visit * Reason Onset Date Comments Prior Authorization 07/30/2023 MRI Encounter Details Date Type Department Care Team Description 07/30/2023 Telephone Radiology - [place] [address] [place] [address] Fay Grewal PA-C [address] [place] [address] Prior Authorization (MRI) Social History Tobacco Use Types Packs/Day Years [...] encounter Miscellaneous Notes * Telephone Encounter - Fay Grewal PA-C - 09/16/2023 5:39 PM EDT Spoke with nurse for an appeal as MRI was denied. Approval reference number [id number] MRI order will be good between -Nov 14 Please call the patient to schedule MRI. Thank you * Telephone Encounter - Zee Beach L.P.N. - 09/14/2023 11:39 AM EDT Fay, I spoke with Faina in MRI and she spoke with the FED[employer] julien who does them for MRI and she calledthe insurance co and even though it is documented that you called it was not noted by them. Faina said you can try the peer to peer again... or you may have another plan.... Layla * Telephone Encounter - Fay Grewal PA-C - 08/02/2023 8:08 PM EDT I called [facility], spoke to nursing staff, José Griffiths. She states case is still under review by MD, and no further information needed at this time. Their office will reach out to our office once the MD has made decision. * Telephone Encounter - Idalia Willams - 07/30/2023 2:09 PM EDT ADDITIONAL CLINICAL INFORMATION NEEDED: In order to process this case, please provide ?Clinical with any imaging results with dates and conservative treatment in the last 12 weeks? related to this MRI Lower Extremity, any joint; without contrast material(s) request. Please contact [facility] at [phone] and refer to the case # listed above. Ref # [id number] documented in this encounter Plan of Treatment Not on file documented as of this encounter Visit Diagnoses Not on filedocumented in this encounter Care Teams Sash Maker Relationship Specialty Start Date End Date Duke Baxter [address] [place] [address] PCP - General Internal Medicine 01/21/23 Pito Gomez MD Specialist Cardiovascular Disease 01/12/22 documented as of this encounter
--- OUTSIDE RECORDS SUMMARY | 2025-01-04 06:19 | XMS_ITS | Encounter Summary ---
Author Organization [facility] Address [address] [place] [address] Care Team Providers Care Displayer Merchandise Name Role Phone Joelle Rodriguez MD Primary Care Provider [phone] Jv Smith MD Primary Care Provider [phone] Pito Gomez MD Unavailable Unavailable Duke Baxter Primary Care Provider [phone] Encounter Details Date Type Department Care Team Description 12/13/2015 Release of Information Medical Records [address] [place] [id number] Abstract, Provider Social History Tobacco Use Types [...] on filedocumented in this encounter Care Teams Displayer Merchandise Relationship Specialty Start Date End Date Joelle Rodriguez MD [address] [place] [address] PCP - General Internal Medicine 10/15/11 01/05/22 Jv Smith MD [address] [place] [address] PCP - General Internal Medicine 01/06/22 01/20/23 Duke Baxter [address] [place] [id number] PCP - General Internal Medicine 01/21/23 Pito Gomez MD [address] [place] [address] Specialist Cardiovascular Disease 01/12/22 documented as of this encounter
--- OUTSIDE RECORDS SUMMARY | 2025-01-04 06:19 | XMS_ITS | Encounter Summary ---
Author Organization [facility] Address [address] [place] [address] Care Team Providers Care Electroplating Sales Representative Name Role Phone Jv Smith MD Primary Care Provider [phone] Pito Gomez MD Unavailable Unavailable Duke Baxter Primary Care Provider [phone] Reason for Visit * Reason Onset Date Comments Mychart Rx Refill 08/31/2022 Encounter Details Date Type Department Care Team Description 08/31/2022 Refill Adult Medicine [facility] [address] [place] [address] Kei Jeronimo, PA-C [address] [place] [phone] Mychart Rx Refill Social History Tobacco Use Types Packs/Day Years [...] suspected to have Coronavirus/COVID-19? No / Unsure 08/05/2022 1:16 PM EDT documented as of this encounter Miscellaneous Notes * Telephone Encounter - Marce Zaman M.A. - 09/01/2022 9:10 AM EDT Lab Results Component Value Date NA 139 02/19/2021 K 4.3 02/19/2021 CO2 30 02/19/2021 CL 105 02/19/2021 BUN 14 02/19/2021 CREAT 0.62 02/19/2021 GLU 87 02/19/2021 CA 9.0 02/19/2021 GFR > 60 02/19/2021 Last appt 06/26/22 documented in this encounter Plan of Treatment Not on file documented as of this encounter Visit Diagnoses Not on filedocumented in this encounter Care Teams Electroplating Sales Representative Relationship Specialty Start Date End Date Jv Smith MD [address] [place] [address] PCP - General Internal Medicine 01/06/22 01/20/23 Duke Baxter [address] [place] [address] PCP - General Internal Medicine 01/21/23 Pito Gomez MD [address] [place] [address] Specialist Cardiovascular Disease 01/12/22 documented as of this encounter
--- OUTSIDE RECORDS SUMMARY | 2025-01-04 06:19 | XMS_ITS | Encounter Summary ---
Author Organization [facility] Address [address] [place] [address] Care Team Providers Care Hand Heel Seat Fitter Name Role Phone Joelle Rodriguez MD Primary Care Provider [phone] Jv Smith MD Primary Care Provider [phone] Pito Gomez MD Unavailable Unavailable Duke Baxter Primary Care Provider [phone] Encounter Details Date Type Department Care Team Description 09/09/2017 Pt. Referral Request [facility] MyChart [address] [place] [address] Md Gerson Social History Tobacco Use Types [...] on filedocumented in this encounter Care Teams Hand Heel Seat Fitter Relationship Specialty Start Date End Date Joelle Rodriguez MD [address] [place] [address] PCP - General Internal Medicine 10/15/11 01/05/22 Jv Smith MD [address] [place] [address] PCP - General Internal Medicine 01/06/22 01/20/23 Duke Baxter [address] [place] [address] PCP - General Internal Medicine 01/21/23 Pito Gomez MD [address] [place] [address] Specialist Cardiovascular Disease 01/12/22 documented as of this encounter
--- OUTSIDE RECORDS SUMMARY | 2025-01-04 06:19 | XMS_ITS | Encounter Summary ---
Author Organization [facility] Address [address] [place] [address] Care Team Providers Care Fixture Designer Name Role Phone Joelle Rodriguez MD Primary Care Provider [phone] Jv Smith MD Primary Care Provider [phone] Pito Gomez MD Unavailable Unavailable Duke Baxter Primary Care Provider [phone] Reason for Visit * Reason Onset Date Comments poison cory 11/15/2015 Encounter Details Date Type Department Care Team Description 11/15/2015 Telephone Adult Medicine [address] [phone] Joelle Rodriguez MD [address] [place] [phone] poison cory Social History Tobacco Use Types [...] these symptoms?: N/A PCP: Joelle Rodriguez Payor: [employer] FFS / Plan: [employer] CARE PLUS PLAN / Product Type: MEDICAID RISK documented in this encounter Plan of Treatment Not on file documented as of this encounter Visit Diagnoses Not on filedocumented in this encounter Care Teams Fixture Designer Relationship Specialty Start Date End Date Joelle Rodriguez MD [address] [place] [address] PCP - General Internal Medicine 10/15/11 01/05/22 Jv Smith MD [address] [place] [address] PCP - General Internal Medicine 01/06/22 01/20/23 Duke Baxter [address] [place] [address] PCP - General Internal Medicine 01/21/23 Pito Gomez MD [address] [place] [address] Specialist Cardiovascular Disease 01/12/22 documented as of this encounter
--- OUTSIDE RECORDS SUMMARY | 2025-01-04 06:19 | XMS_ITS | Encounter Summary ---
Author Organization [facility] Address [address] [place] [address] Care Team Providers Care Hospitality Manager Name Role Phone Pito Gomez MD Unavailable Unavailable Duke Baxter Primary Care Provider [phone] Encounter Details Date Type Department Care Team Description 07/28/2023 SCAN [facility] Medical [facility] [address] [facility] [address] [place] [phone] Lianne Gan PA-C [address] [facility] [address] [place] [address] Social History Tobacco Use Types Packs/Day Years [...] on filedocumented in this encounter Care Teams Hospitality Manager Relationship Specialty Start Date End Date Duke Baxter [address] [place] [address] PCP - General Internal Medicine 01/21/23 Pito Gomez MD Specialist Cardiovascular Disease 01/12/22 documented as of this encounter
--- OUTSIDE RECORDS SUMMARY | 2025-01-04 06:19 | XMS_ITS | Encounter Summary ---
Author Organization [facility] Address [address] [place] [address] Care Team Providers Care Income Tax Consultant Name Role Phone Jv Smith MD Primary Care Provider [phone] Pito Gomez MD Unavailable Unavailable Duke Baxter Primary Care Provider [phone] Encounter Details Date Type Department Care Team Description 03/27/2022 SCAN Medical Records [address] [place], [place] [phone] [place] [address] Social History Tobacco Use Types Packs/Day Years [...] on filedocumented in this encounter Care Teams Income Tax Consultant Relationship Specialty Start Date End Date Jv Smith MD [address] [place] [address] PCP - General Internal Medicine 01/06/22 01/20/23 Duke Baxter [address] [place] [address] PCP - General Internal Medicine 01/21/23 Pito Gomez MD [address] [place] [address] Specialist Cardiovascular Disease 01/12/22 documented as of this encounter
== END 2025-01-04 06:17 | disposition home or self-care (01) ==
LOC: CF 06:16
PROVIDERS: Visit Provider Internal Medicine
DX: M25.562 Pain in left knee (principal)
CPT/HCPCS: 64454; J2795

== ENCOUNTER 2025-01-04 09:18 | Outpatient (AMB) | payer OTHER, SELFPAY ==
[2025-01-04 10:09] VITALS: BP 110/76; PULSE 82; RESP 16; O2SAT 97
--- NOTE | 2025-01-04 10:09 | MHC.OFFVIS ---
Vital Signs 01/04/25 10:09 01/04/25 10:26 BP 110/76 112/80 Blood Pressure Location Lt brachial Lt brachial Position Sitting Sitting Respiration 16 16 Pulse 82 62 Pulse Source Pulse Oximeter Pulse Oximeter Pulse Oximetry (%) 97 98 Oxygen Delivery Method Room Air Room Air Intake Visit Reasons: Left Diagnostic GNB Animal Geneticist Required: No Allergies No Known Allergies Allergy (Verified 01/04/25 10:10) Medication List - Last Reconciled 01/04/25 by Alanna Zamarripa LPN duloxetine 20 mg PO ONCE hydrochlorothiazide 25 mg PO DAILY ibuprofen 600 mg PO TID lisinopril 20 mg PO DAILY mirtazapine 7.5 mg PO BEDTIME omeprazole 20 mg PO DAILY polyethylene glycol 3350 17 grams PO DAILY tirzepatide (Mounjaro) 2.5 mg subcut QWEEK tobramycin-dexamethasone 0.3-0.1 % drps ophthalmic (eye) HPI HPI Left Diagnostic GNB: Details: Patient presents for scheduled procedure. Denies any recent cough, cold, infection, fever or other significant changes in medical history since last office visit. [facility] Medical History (Updated 12/27/24 @ 15:39 by Ryanne Leon APRN, EXPLOSIVE ORDNANCE DISPOSAL TECHNICIAN) Chronic low back pain Tendinitis, de Quervain's Lumbar spondylitis Hyperlipemia GERD without esophagitis Elevated glucose Chronic nausea Osteoarthritis of knees, bilateral Prediabetes Overweight Surgical History (Updated 10/27/24 @ 09:20 by Lupe Thompson) History of eye surgery History of arthroplasty of left ankle H/O: hysterectomy Social History (Updated 10/27/24 @ 09:06 by Lupe Thompson) Alcohol intake: never Patient Tobacco Use Status: Former Tobacco user Physical Exam Vital Signs: Last Vital Signs Pulse 62 01/04/25 10:26 Resp 16 01/04/25 10:26 BP 112/80 01/04/25 10:26 Pulse Ox 98 01/04/25 10:26 Oxygen Delivery Method Room Air 01/04/25 10:26 Office Procedures Nerve Block Details: Superior medial, superior lateral, and inferior medial genicular nerves block, left - Ultrasound Guided After obtaining written consent, pre-procedure blood pressure and heart rate were stable and recorded in the nursing record. The patient was placed supine on the table. The area overlying the peripheral nerves was widely prepped with chloraprep and allowed to dry. Using ultrasound, the appropriate landmarks were identified. A 25 gauge 1.5 inch hypodermic needle was advanced under ultrasound guidance to the appropriate landmark of each peripheral nerve. Aspiration was negative for heme and synovial fluid. 2 cc of bupivacaine 0.5% was injected around each targeted nerve. The needle was removed, skin cleansed and a sterile bandage was applied. The patient tolerated the procedure well and no complications were encountered. Following the procedure the patient's vital signs were stable. The patient was discharged home in good condition with post-procedural instructions. Time Out: Immediately prior to the procedure, the following was verbally confirmed that there is a signed consent form and that the correct patient, planned procedure, site and side are consistent with documentation and that necessary equipment and/or blood products are available prior to the start of the case. Complications: none EBL: <5 cc [id number] Nerve Block Procedure code (CPT) selection complete Assessment & Plan Assessment & Plan (1) Left knee pain: Code(s): M25.562 - Pain in left knee Category: Medical Plan Patient is status post diagnostic left knee genicular nerve blocks under ultrasound guidance. Patient tolerated procedure well and was discharged home in stable condition with discharge instructions. All questions were answered. We will follow-up via telephone or in clinic to assess response to therapy. A follow-up appointment was made during today's visit. Orders: Orders FL guidance in treatment room Today Ryanne Leon APRN, EXPLOSIVE ORDNANCE DISPOSAL TECHNICIAN M25.562 - Pain in left knee AMB Nerve Block Today Skyler Richards MD M25.562 - Pain in left knee Coding Level of Care Code Procedure Only Diagnoses Left knee pain M25.562 CPT Codes Nerve Block - Nerve Block: [id number] Nerve Block ([id number])
[2025-01-04 10:26] VITALS: BP 112/80; PULSE 62; RESP 16; O2SAT 98
== END 2025-01-04 10:25 | disposition home or self-care (01) ==
LOC: HO.PMCPRC 09:18
PROVIDERS: PCP Internal Medicine; Visit Provider Internal Medicine
DX: M25.562 Pain in left knee (principal)
CPT/HCPCS: 64454

== ENCOUNTER 2025-01-08 10:42 | Outpatient (AMB) | payer OTHER, SELFPAY ==
--- NOTE | 2025-01-08 10:47 | MHC.OFFVIS ---
Vital Signs 01/08/25 10:54 Height 5 ft 3 in Weight 195 lb BMI 34.5 BP 149/95 H Blood Pressure Location Rt brachial Position Sitting Pulse 82 Pulse Source Pulse Oximeter Pulse Oximetry (%) 98 Oxygen Delivery Method Room Air Intake Visit Reasons: S/P Left Diagnostic GNB Intake Note: Pain today 09/24 Service Center Assistant Required: No Accompanied by: Self / Same As Patient Allergies No Known Allergies Allergy (Verified 01/08/25 10:54) HPI Comments Details: The patient is a 59 year old female presenting for follow-up for left knee pain after a diagnostic genicular nerve block and evaluation of worsening right knee pain. The patient underwent a diagnostic genicular nerve block on the left knee on 01/04, which resulted in positive pain relief for approximately six hours, improving walking and the ability to climb stairs. The patient also reports significant pain and visible swelling in the right knee and is seeking relief. The pain has been present for a long time and is now getting super bad, affecting sleep. The patient does not take ibuprofen due to stomach upset and is no longer taking gabapentin. The patient found oxycodone helpful for pain after a prior surgery. The patient denies being diabetic, taking any blood thinners, drinking alcohol, or using illicit drugs or tobacco. Past Procedures: 01/04/25: Left diagnostic genicular nerve block-100% pain relief PRIOR: The patient is a 59-year-old female presenting with knee pain due to osteoarthritis. The patient reports having severe osteoarthritis in both knees, with pain that began approximately two years ago and has progressively worsened over time. She has undergone physical therapy and received cortisone injections at [facility], the last of which was five to six months ago, but these interventions provided limited relief. The patient experiences difficulty rising from a kneeling position without assistance and has limited mobility due to a previous left ankle surgery. The patient also has a history of osteoarthritis in both hands and arthritis in the left thumb, which has been surgically treated with some relief of the original pain. However, she now experiences difficulty bearing weight on her wrist. The patient is prediabetic and has a history of anxiety and depression, for which she is seeking psychiatric care to adjust her medications. She reports that her BMI is 35.8, and she is aware of her overweight status, which she believes contributes to her knee pain. The patient has tried various pain management strategies, including Tylenol, duloxetine, gabapentin, and oxycodone post-surgery, as well as topical treatments like lidocaine, heat, and ice. She finds that ice provides significant relief, particularly at night, although her pain remains constant and severe, affecting her daily activities and sleep. - Onset: Pain began approximately two years ago and has progressively worsened. - Quality: Pain is described as constant, shooting, stabbing, sharp, sore, aching, heavy, and burning. - Location: Pain is primarily in the knees, radiating from medial to lateral, with the left knee being worse than the right. - Exacerbating Factors: Pain worsens with mobility and weight-bearing activities. - Relieving Factors: Ice provides significant relief, especially at night. - Interference: Pain affects mobility, daily activities, and sleep, with morning pain rated 7 to 10 out of 10 and bedtime pain rated 7 out of 10. - Affect: Pain impacts mood and psychological well-being, contributing to anxiety and depression. - Analgesia: Current medications include Tylenol, Advil, duloxetine, gabapentin, and post-surgical oxycodone; pain remains severe, with morning pain rated 7 to 10 out of 10. - Adverse Effects: Sleep medications cause daytime drowsiness and increased appetite. - Activities of Daily Living: Pain limits mobility and daily activities, with difficulty rising from kneeling positions. - Aberrant Drug Related Behaviors: No signs of medication misuse or abuse reported. [facility] Medical History Chronic low back pain Tendinitis, de Quervain's Lumbar spondylitis Hyperlipemia GERD without esophagitis Elevated glucose Chronic nausea Osteoarthritis of knees, bilateral Prediabetes Overweight Surgical History History of eye surgery History of arthroplasty of left ankle H/O: hysterectomy Social History Alcohol intake: never Patient Tobacco Use Status: Former Tobacco user Review of Systems Const Details: - Musculoskeletal: Reports bilateral knee pain and right knee swelling. - Constitutional: Reports disturbed sleep due to pain. - Gastrointestinal: Reports stomach upset with ibuprofen. All systems reviewed & are unremarkable except as noted in HPI and below Physical Exam Vital Signs: Last Vital Signs Pulse 82 01/08/25 10:54 BP 149/95 H 01/08/25 10:54 Pulse Ox 98 01/08/25 10:54 Oxygen Delivery Method Room Air 01/08/25 10:54 BMI result Body Mass Index 34.5 General: Appears afebrile. Alert and oriented. Mood and affect appropriate. Follows and participates in conversation appropriately. Respiratory effort is unlabored. No cough. Able to transition from sit to stand unassisted. Ambulates with bilaterally normal heel strike and toe off. Back/Spine/Pelvis Thoracic/Lumbar Spine: thoracic and lumbar spine normal to inspection, Lasegue's sign negative, straight leg raise negative bilaterally, pain with thoraco-lumbar ROM, paraspinal muscle tenderness, thoraco-lumbar ROM limited, No thoracic spinal tenderness and No lumbar spinal tenderness Extrem General: Yes capillary refill normal, Yes no clubbing, cyanosis or edema and Yes no calf tenderness Right lower extremity: knee (Limited ROM due to pain) Details: normal to inspection, tenderness Location: of the patella, of the medial joint line and of the lateral joint line and crepitus; no swelling, no ecchymosis, no deformity and no unusual warmth Left lower extremity: knee (Limited ROM due to pain) Details: normal to inspection, tenderness Location: of the medial joint line and of the lateral joint line and crepitus; no swelling, no ecchymosis and no unusual warmth Results Reviewed Results Reviewed: No imaging results are available for review. Assessment & Plan Assessment & Plan (1) Osteoarthritis of knees, bilateral: Code(s): M17.0 - Bilateral primary osteoarthritis of knee Category: Medical (2) Bilateral knee pain: Code(s): M25.561 - Pain in right knee; M25.562 - Pain in left knee Category: Medical (3) Chronic low back pain: Code(s): M54.50 - Low back pain, unspecified; G89.29 - Other chronic pain Category: Medical Plan Based on the successful diagnostic block, the plan is to proceed with a genicular nerve radiofrequency ablation (RFA) for the left knee with local, oral sedation and fluoroscopy. For right knee pain, a prior authorization will be requested for a cortisone injection under fluoroscopy guidance. An attempt will be made to schedule both the left knee RFA and right knee cortisone injection for the same day. Expectations, risks and benefits were reviewed. Patient is aware she will be contacted to schedule this procedure. To manage severe pain while awaiting these procedures, a one-time prescription for oxycodone 5 mg will be sent to the pharmacy. The patient was counseled to take one or two tablets per day only for severe pain (>7/10). A prescription for Narcan will be co-prescribed, and the patient was educated on its use for opioid-induced respiratory depression. All questions and concerns have been answered and patient agreed with the treatment plan. Follow up after injection/genicular RFA and sooner as needed. Patient was informed and verbally consented to the use of an ambient scribe for clinic note documentation during this visit. Medications: New oxycodone Partial Fill upon patient request. 5 mg PO Q8H PRN 30 tabs 0RF pain (scale score 7-10) 10 days G89.29 - Other chronic pain, M17.0 - Bilateral primary osteoarthritis of knee, M25.561 - Pain in right knee, M25.562 - Pain in left knee, M54.50 - Low back pain, unspecified naloxone 4 mg/actuation (Narcan) spray 1 dose into ONE nostril; alternate nostrils w each dose until help arrives 4 mg intranasal Q2M PRN 2 ea 0RF opioid overdose G89.29 - Other chronic pain, M17.0 - Bilateral primary osteoarthritis of knee, M25.561 - Pain in right knee, M25.562 - Pain in left knee, M54.50 - Low back pain, unspecified Coding Level of Care Code Est Pt Level 4 (15075) Diagnoses Osteoarthritis of knees, bilateral M17.0 Bilateral knee pain M25.561; M25.562 Chronic low back pain M54.50; G89.29
[2025-01-08 10:54] VITALS: BP 149/95; PULSE 82; O2SAT 98; BMI 34.5
== END 2025-01-08 11:14 | disposition home or self-care (01) ==
LOC: HO.PMC 10:43
PROVIDERS: PCP Internal Medicine; Visit Provider Nurse Practitioner Family
DX: M17.0 Bilateral primary osteoarthritis of knee (principal); M25.561 Pain in right knee; M25.562 Pain in left knee; M54.50 Low back pain, unspecified; G89.29 Other chronic pain
CPT/HCPCS: 99214

== ENCOUNTER → 2025-01-08 10:42 | Outpatient (BNVA) | payer OTHER, SELFPAY | PROVIDERS: PCP Internal Medicine; Visit Provider Nurse Practitioner Family | DX: M17.0 Bilateral primary osteoarthritis of knee (principal); M25.561 Pain in right knee; M25.562 Pain in left knee; M54.50 Low back pain, unspecified; G89.29 Other chronic pain | CPT/HCPCS: 99212 ==